=== PATIENT | male | born 1935 | race Caucasian/White ===

== ENCOUNTER 2018-12-01 15:52 | Outpatient (CLI) | payer MEDICARE, OTHER ==
--- NOTE | 2018-12-01 16:03 | RAD ---
EXAM: Chest PA and lateral: HISTORY: Fever. Rib fracture. COMPARISON: 06/22/2018 FINDINGS: Heart: Normal size Aorta: Atherosclerosis Pulmonary vessels: Normal Costophrenic angles: Right costophrenic angle is clear. Blunting of the left costophrenic angle likel y due to chronic change. Lungs: No consolidation or masses.. Chronic changes in the left lung base. Pneumothorax: No pneumothorax Osseous structures: No osseous abnormalities IMPRESSION: No acute cardiopulmonary process.
== END 2018-12-01 15:53 | disposition home or self-care (01) ==
LOC: RAD-FRANK 15:52
PROVIDERS: ATTEND Nurse Practitioner Family
DX: R50.9 Fever, unspecified (principal); S22.39XA Fracture of one rib, unspecified side, initial encounter for closed fracture; R53.83 Other fatigue
CPT/HCPCS: 71046

== ENCOUNTER 2018-12-03 10:03 | Inpatient (IN) | payer MEDICARE ==
[2018-12-03] MEDS ORDERED: Ondansetron PF 4 MG/2 ML Vial ONE ×2 (10:19→10:39)
[2018-12-03] MEDS ORDERED: Acetaminophen 500 MG TAB ONE (10:20)
[2018-12-03] MEDS ORDERED: Acetaminophen 325 MG TAB ONE (10:41)
--- NOTE | 2018-12-03 10:52 | RAD ---
AP CHEST: Date: 12/03/18 HISTORY: Fever. FINDINGS: No infiltrate seen. Heart size upper normal. Vasculature within normal range. No effusion. IMPRESSION: No acute process. POS: OFF
[2018-12-03 10:55] LABS: ALT (SGPT) 29 U/L (8-55); AST (SGOT) 39 U/L (5-34); Albumin 3.6 g/dL (3.4-4.8); Alkaline Phosphatase 82 U/L (40-150); Anion Gap 13 mmol/L (10-20); BUN (Urea Nitrogen) 17 mg/dL (8.4-25.7); Bilirubin, Total 1.2 mg/dL (0.2-1.2); Calc. Creatinine Clearance 0 mL/min (70-130); Calcium 9.7 mg/dL (7.8-10.44); Carbon Dioxide 25 mmol/L (23-31); Chloride 107 mmol/L (98-107); Estimated GFR-MDRD 77; Globulin 2.6 g/dL (2.4-3.5); Glucose 115 mg/dL (83-110); Protein, Total 6.2 g/dL (5.8-8.1); Sodium 141 mmol/L (136-145)
[2018-12-03 10:58] LABS: Mean Corpuscular HGB CONC 33.1 g/dL (32.0-36.0); Mean Corpuscular Hemoglobin 31.4 pg (27.0-31.0); Mean Corpuscular Volume 94.8 fL (78.0-98.0); Mean Platelet Volume 8.2 fL (7.4-10.4); Platelet Count 97 thou/uL (130-400); Platelet Morphology Comment Appears Decreased; RBC Distribution Width 13.1 % (11.5-14.5); Red Blood Cell (RBC) Count 4.46 mill/uL (4.70-6.10); White Blood Cell (WBC) Count 0.6 thou/uL (4.8-10.8)
[2018-12-03 10:59] LABS: MDiff Complete? YES
[2018-12-03 12:01] LABS: Hemoglobin 12.6 g/dL (14.0-18.0); Mean Corpuscular HGB CONC 32.4 g/dL (32.0-36.0); Mean Corpuscular Hemoglobin 31.6 pg (27.0-31.0); Mean Corpuscular Volume 97.6 fL (78.0-98.0); RBC Distribution Width 12.9 % (11.5-14.5); Red Blood Cell (RBC) Count 3.98 mill/uL (4.70-6.10); White Blood Cell (WBC) Count 1.8 thou/uL (4.8-10.8)
[2018-12-03 12:08] LABS: #Lymphocytes 0.3 thou/uL (1.20-3.40); #Neutrophils 1.5 thou/uL (1.40-6.50); %Eosinophils 1.9 % (0.0-10.0); %Lymphocytes 14.2 % (21.0-51.0); %Monocytes 0.9 % (0.0-10.0); Mean Platelet Volume 7.5 fL (7.4-10.4); Platelet Count 70 thou/uL (130-400); Platelet Morphology Comment Appears Decreased
[2018-12-03 12:23] LABS: Bilirubin Negative (Negative); Blood, Urine Large (Negative); Clarity CLOUDY (Clear); Glucose, Urine (Dipstick) Negative (Negative); Leukocyte Small (Negative); Nitrite Positive (Negative); Protein, Urine (Dipstick) Trace mg/dL (Neg-Trace); Specific Gravity, Urine 1.009 (1.002-1.036); Urobilinogen 0.2 mg/dL (0.2-1.0)
[2018-12-03 12:27] LABS: Bacteria/HPF None Seen HPF (None Seen); Hyaline Casts/LPF 0-3 HYALINE CAST LPF (0-3 Hyaline); Pathc Cast-AUWi Flag 0.13 (0-2.49); RBC/HPF GREATER THAN 50-TNTC HPF (0-3); Squamous Epithelial 0-3 HPF (0-3); WBC/HPF 21-50 HPF (0-3)
[2018-12-03] MEDS ORDERED: Piperacillin/Tazobactam 4.5 GM VIAL ONE (12:44)
[2018-12-03] MEDS ORDERED: cefTRIAXone\\ROCEPHIN 2 GM VIAL ONE (12:47)
[2018-12-03] MEDS ORDERED: Ibuprofen 200 MG TAB ONE (13:51)
[2018-12-03] MEDS ORDERED: Ondansetron PF 4 MG/2 ML Vial IVP PRN (15:14)
[2018-12-03] MEDS ORDERED: Ondansetron ODT 4 MG TAB PO PRN (15:14)
[2018-12-03] MEDS ORDERED: Acetaminophen 325 MG TAB PO PRN (15:14)
--- NOTE | 2018-12-03 15:54 | RAD ---
Right hip: 2 views HISTORY: Hip pain. Sepsis. Right hip prosthesis appears adequately positioned. No evidence of loosening. No fracture or acute os seous abnormality. IMPRESSION: No acute finding
--- NOTE | 2018-12-03 16:58 | CT ---
CT ABDOMEN AND PELVIS WITHOUT IV CONTRAST: 12/03/18 Multiple axial tomograms obtained through the abdomen and pelvis without IV enhancement. INDICATIONS: UTI. Sepsis. FINDINGS: Images through the lung bases show mild left basilar atelectasis or infiltrate. The liver, spleen and pancreas appear unremarkable. Adrenal glands normal. The kidneys showed no evidence of hydronephrosis. There is perinephric standin g bilaterally which could represent inflammatory change. No mass or cystic lesion identified although the exam is limited without contrast. Ureters appear normal. Urinary bladder is mildly distended but is unremarkable. Prostate shows calcif ication without significant enlargement. Small bowel loops appear normal. Diverticulosis of the left colon and sigmoid. Aorta normal caliber. No evidence of adenopathy. The gallbladder is nondistended; however, there is evidence of increased density within the gallbladd er lumen. This may represent gallstones which are not apparent by CT. Consider gallbladder ultrasound exam as indicated. Degenerative spine changes are prominent. IMPRESSION: 1. Question abnormal density within the gallbladder lumen. Gallstones cannot be excluded. 2. Diverticulosis without CT evidence of diverticulitis. 3. Bilateral perinephric stranding which is nonspecific. POS: [facility]
[2018-12-03] MEDS ORDERED: Norepinephrine 8 MG/0.9% NS 250 ML ONE (18:11)
--- NOTE | 2018-12-03 18:40 | RAD ---
PORTABLE CHEST ONE VIEW: 12/03/18 at 6:05 p.m. HISTORY: Line placement. FINDINGS/IMPRESSION: Comparison is made with earlier exam of 10:36 a.m. from the same date. There has been interval placement of a left internal jugular central line with tip in the projection of the right brachiocephalic vein. No pneumothorax is seen. POS: [facility]
[2018-12-03] MEDS: Piperacillin/Tazobactam 3.375 GM in Sodium Chloride 0.9% 100 ML IVPB SCH (18:42)
[2018-12-03] MEDS ORDERED: Norepinephrine 8 MG/250 ML BAG IVPB PRN (20:21)
[2018-12-03] MEDS: Famotidine/PF 20 mg/2ml Vial SLOW IVP SCH (20:55)
[2018-12-03] MEDS ORDERED: Lactated Ringer's 500 ML IVPB PRN (21:00)
--- NOTE | 2018-12-03 22:32 | HP ---
CHIEF COMPLAINT: Vomiting. HISTORY OF PRESENT ILLNESS: This patient is an 83-year-old male with a past medical history notable for prostate cancer requiring external beam radiation therapy, but no surgery or chemotherapy. The patient also has notable history for having hip surgery in July at [facility]. The patient reports he was feeling quite well. Two days ago on the , he experienced some low-grade fever. Saw his PCP, at which time he had lab work performed. At that time, he had a CBC of 6.5, hemoglobin of 13, platelets of 168. He had 36% bands. His chemistries were normal and his urinalysis was positive for nitrites, large blood, small leukocyte esterase, 7-10 red cells, 21-50 white cells, and 4+ bacteria. The patient had not heard back on those results, but felt quite well yesterday, had no generalized symptoms, although he did report that he developed some dysuria and hematuria. The patient awoke today feeling quite well, although still having some hematuria and dysuria. Then, he had the fairly abrupt onset of severe rigors and generally felt poorly. He took a couple of Aleve, but subsequently had some vomiting. He also reports having pain in his left shoulder, right hip, and low back area, although he reports all of these are chronic and none of them are new associated with this current illness. The patient decided to come to this facility because Dr. Sanford is his urologist and he knew he would be able to come here. Up until today, the patient has been eating and drinking well, has had basically normal bowel and bladder habits. No new musculoskeletal symptoms other than those that were chronic and mentioned above. REVIEW OF SYSTEMS: All other systems reviewed. All pertinent positives and negatives noted in the history of present illness. PAST MEDICAL HISTORY: Notable for the prostate cancer, which was treated with external beam radiation only, hyperlipidemia. 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 PAST SURGICAL HISTORY: He has had a herniorrhaphy and right hip surgery at [facility] in July of 2018. FAMILY HISTORY: Mother had CVAs. He is unaware of any medical problems with his father. SOCIAL HISTORY: No alcohol, tobacco, or drugs. He is . He is full code. His would be his surrogate decision maker should that be necessary. MEDICATIONS: Crestor 10 mg one p.o. at bedtime. ALLERGIES: NONE. PHYSICAL EXAMINATION: VITAL SIGNS: On initial presentation, temperature was 102.4, O2 saturation 91% on room air. First BP was 118/64. Most recent set of vital signs, BP is 81/51, pulse 78, respirations 22, O2 saturation 94% on 3 L nasal cannula. GENERAL APPEARANCE: The patient appears ill. He is awake and conversant, but appears uncomfortable. HEENT: PERRL. No OP lesions. TMs are normal. NECK: Supple and symmetric. HEART: Normal with a faint 1 to 2/6 murmur right upper sternal border. LUNGS: Clear to auscultation bilaterally with good chest wall expansion and air exchange. ABDOMEN: Soft, nontender, and nondistended. He does have some fullness in the pelvis in the suprapubic area, although I cannot distinctly say it is a bladder fullness. EXTREMITIES: He has no cyanosis, clubbing, or edema. He does have tenderness to palpation fairly specifically in the right hip joint area and some slight tenderness in the left shoulder area. PSYCH: The patient has normal affect and behavior. LABORATORY DATA: Here, initial white count was 0.6, hemoglobin 14.0, platelets 97. Repeat shows white count of 1.8, hemoglobin of 12.6, platelets of 70. Chemistries; sodium 141, potassium 4.0, chloride 107, CO2 of 25, BUN 17, creatinine 0.94, glucose 115, lactic acid 1.4, calcium 9.7, AST 39, ALT 29, albumin 3.6. Urinalysis; large blood, positive nitrites, small leukocyte esterase, greater than 50 red cells, 21 to 50 white cells, no bacteria seen. Of note, urine culture from the is growing 25,000 to 50,000 colonies of gram-negative zay. Chest x-ray from today is negative. Flu screen negative. IMPRESSION AND PLAN: 1. The patient appears to have sepsis secondary to a fever, low white count, now hypotension consistent with septic shock and evidence of potential urinary tract infection and the patient with a history of prostate cancer. Discussed the case with Dr. Collier, Pulmonary Critical Care and Dr. Sanford of Urology. We will get CT scan of the abdomen and pelvis. Also going to get some plain films of the right hip. Continue with the vancomycin and Zosyn and admit the patient to the IM. He has received 2 L of fluid in the emergency department, will be given a 3rd now. The patient has already received vancomycin, Zosyn, and Rocephin. I have asked the nurse to get a bladder scan if she can do that quickly, otherwise CT will be able to show us the results. 2. Pancytopenia. The patient had a dramatic drop in his white count and platelets over a 2-day timeframe. The etiology that is unclear unless it is either severe viral illness which is less likely versus simply severe sepsis causing some suppression which is more likely. 3. Several areas of musculoskeletal pain, all appear to be chronic. We will get the x-ray of the right hip. At this point, I do not feel the need to pursue the other issues unless they continue to be problematic. 4. Shock secondary to sepsis. Continue fluid resuscitation. 5. History of cerebrovascular accident, stable. 6. History of hyperlipidemia. We will resume statin when he is stable. Job ID: [id number]
--- NOTE | 2018-12-03 23:36 | CON ---
DATE OF CONSULTATION: 12/03/2018 SERVICE: Pulmonary Medicine. REASON FOR CONSULTATION: Septic shock. HISTORY OF PRESENT ILLNESS: The patient is a very pleasant 83-year-old white male with past medical history significant for prostate cancer. He underwent radiation therapy to it. He has had episodes of stricture requiring some dilation. He was in his usual state of health when he started having increasing lethargy, fatigue, nausea, and vomiting. He was seen by his primary care physician 2 days ago. Urine culture was obtained. He was called yesterday about the urine culture, but missed the phone call. They told him he was going to try again on Wednesday. Overnight, he had increasing fatigue and lethargy and presented to the emergency department where he was discovered to have hypotension. He was given 3 L of fluid and vancomycin and Zosyn to fix the urinary tract infection. After 3 L of fluid, his blood pressure firmed up. That being said, 2 hours later, he landed in the IMCU, and our initial blood pressures were extraordinarily low. As such, we are in the process of stabilizing him further. PAST MEDICAL HISTORY: 1. Prostate cancers, status post radiation only. 2. Dyslipidemia. PAST SURGICAL HISTORY: 1. Dilation of urethra. 2. Right hip surgery. 3. Umbilical hernia repair. SOCIAL HISTORY: Negative for alcohol, tobacco, or illicit drug use. He has no exposure to chemicals, dust, asbestos, or tuberculosis. FAMILY HISTORY: Noncontributory. ALLERGIES: NO KNOWN DRUG ALLERGIES. MEDICATIONS: List of his inpatient medications was reviewed and updated. REVIEW OF SYSTEMS: General, head, ears, eyes, nose, throat, cardiovascular, respiratory, GI, , musculoskeletal, neurologic, and skin is negative as mentioned in the HPI. PHYSICAL EXAMINATION: VITAL SIGNS: Afebrile, pulse 70, blood pressure 74/52, respirations 14, saturation 99% on 2 L nasal cannula. GENERAL: The patient is awake and alert. He has got a little toxic look about him. HEENT: Normocephalic and atraumatic. Sclerae white. Conjunctivae pink. Oral mucosa is moist without lesions. LUNGS: Decent air entry without any prolonged expiratory phase or wheezing present. HEART: Normal rate. Regular. ABDOMEN: Soft, nontender, and nondistended. Bowel sounds are positive. MUSCULOSKELETAL: No cyanosis or clubbing. There is no pitting edema. SKIN: Tenting is present, which is mild. GENITOURINARY: Quesada catheter is now in place after placement of coude. NEUROLOGIC: Nonfocal. LABORATORY DATA: WBC 1.8 and gently up-trending. Neutrophil count is 83%. Hemoglobin 12.6 (baseline 14). Basic metabolic profile, lactate and liver function studies are unremarkable. White blood cells are 21-50. There are large nitrites present. Leukocyte esterase is also present. Influenza A and B are unremarkable. Recent urine culture is growing gram-negative rods from [address] of the abdomen and pelvis demonstrates abnormal gallbladder lesion. Diverticulosis without evidence of diverticulitis is noted. Bilateral perinephric stranding is present. 2. Rather his hip x-ray demonstrates no acute abnormality. 3. Chest x-ray demonstrates no acute cardiopulmonary abnormality. ASSESSMENT: 1. Septic shock. 2. Urinary tract infection secondary to gram-negative zay. 3. Pyelonephritis, possible. 4. History of prostate cancer, status post radiation therapy only. DISCUSSION AND PLAN: I will give the patient another liter of fluid. If his blood pressures remain flat, we will need to move him to the ICU, place a central line , initiate the patient on a pressor. I will go ahead and initiate stress doses of steroids for the time being. I agree with our antibiotic selection. Most likely, we are dealing with this. The fall out from a massive release of lipopolysaccharide associated with appropriate antibiotic coverage. He will definitely remain in the IMCU, or ICU until his blood pressure is stabilized. Pulmonary/Critical Care will continue to follow along. Critical care time: 30 minutes, unbundled from procedure. Job ID: [id number] [facility]
[2018-12-04] MEDS: Piperacillin/Tazobactam 3.375 GM in Sodium Chloride 0.9% 100 ML IVPB SCH ×5 (00:06→23:05)
--- NOTE | 2018-12-04 01:19 | CON ---
DATE OF CONSULTATION: 12/03/2018 HISTORY OF PRESENT ILLNESS: This is an 83-year-old white male who was admitted today with fever, chills, low blood pressure, very low white count, and urinalysis with white cells and red cells in it. He stated that he was feeling okay until just a couple of days ago. [facility] because he was having some difficulty with urination and burning with urination. He was seen there and I do not believe he was started on any antibiotics. It got worse yesterday and today he started throwing up and having a lot of muscle aches and myalgias as well as fever and chills, voiding just small amounts and noticed some blood in the urine. He was seen in the ER here, had a very low white count. His creatinine was normal. Urinalysis as mentioned. Platelet count was somewhat low also. Cultures of blood and urine were done. He was started on Rocephin, Zosyn, and vancomycin in the emergency center and given some IV fluids. He was sent up to the floor, had problems with low blood pressure on the floor, so he has been transferred here to the ICU. He had an ultrasound of the bladder done that showed about 600 mL and the coude catheter was passed, there was a little bit difficulty in passing this, but they were able to get it in and the urine is draining fine now. He does have a distant history of urethral stricture in 2014. He required a visual internal urethrotomy because of this. His bladder at that time showed some radiation changes as he has had a history of prostate cancer and was radiated for that. I have to review my office notes, but as far as I know he has been doing fine in that regard. A noncontrast CAT scan was done. He does not have hydronephrosis, did have some distention of the bladder, some prostatic calcifications. No stones in either kidney. Nothing to suggest an abscess. He did have some bilateral perinephric stranding, which although could represent pyelonephritis and also can be somewhat nonspecific. PHYSICAL EXAMINATION: He does not really have any significant flank tenderness. His abdomen is soft. There are not any significant rebound, guarding, or abdominal tenderness. The bladder is not distended. He is circumcised. Catheter is draining. Testicles descended. There is nothing to suggest epididymitis. I did not do a rectal exam today. There was not anything on his CAT scan to suggest a prostatic abscess or perirectal abscess and with having the radiation, which seem unlikely, he began getting prostatitis. PLAN: At this time will be to keep him on antibiotics, keep the catheter in, keep him supported here with fluids and pressors as needed in the ICU. There is nothing that appears to be drained apart from having this somewhat distended bladder and has had a catheter in now for that and there is nothing that would look like he would need a ureteral stent. Nothing that looks like he has anything drained in terms of a perinephric or renal abscess. We will follow along with you. Keep him on vancomycin and Zosyn. We will see what his final culture shows. Job ID: [id number]
[2018-12-04 05:09] LABS: ALT (SGPT) 38 U/L (8-55); AST (SGOT) 59 U/L (5-34); Albumin 2.9 g/dL (3.4-4.8); Alkaline Phosphatase 45 U/L (40-150); Anion Gap 11 mmol/L (10-20); BUN (Urea Nitrogen) 23 mg/dL (8.4-25.7); Bilirubin, Total 1.8 mg/dL (0.2-1.2); Calc. Creatinine Clearance 49 mL/min (70-130); Calcium 8.1 mg/dL (7.8-10.44); Carbon Dioxide 23 mmol/L (23-31); Chloride 111 mmol/L (98-107); Estimated GFR-MDRD 59; Globulin 2.2 g/dL (2.4-3.5); Glucose 145 mg/dL (83-110); Potassium 3.5 mmol/L (3.5-5.1); Protein, Total 5.1 g/dL (5.8-8.1); Sodium 141 mmol/L (136-145)
[2018-12-04] MEDS: Famotidine/PF 20 mg/2ml Vial SLOW IVP SCH ×2 (09:24→19:59)
--- NOTE | 2018-12-04 10:53 | PRG ---
DATE OF SERVICE: 12/04/2018 SERVICE: Pulmonary Medicine. INTERVAL HISTORY: The patient is doing really well from respiratory standpoint. He had a little bit of coughing yesterday. He brought up some white phlegm. Other than that, he had absolutely no complaints. He actually feels much stronger today. Denies any current fevers or chills. No overnight events, nausea, vomiting, or diarrhea. He remains on 9 mcg of Levophed. Whenever this is interrupted, he does have significant drop in blood pressure. PHYSICAL EXAMINATION: VITAL SIGNS: Afebrile, pulse 98, blood pressure 122/71, respirations 19, and saturation 97% on 2 L nasal cannula. GENERAL: The patient is awake and alert, in no apparent distress. LUNGS: Excellent air entry. I do not appreciate any crackling. No prolonged expiratory phase or wheezing is appreciated. HEART: Normal rate. Regular. ABDOMEN: Soft, nontender, and nondistended. Bowel sounds are positive. MUSCULOSKELETAL: No cyanosis or clubbing. There is no pitting in the bilateral lower extremities. NEUROLOGIC: Grossly nonfocal. LABORATORY DATA: Sodium 141, basic metabolic profile is otherwise unremarkable. Total bilirubin 1.8. Cultures are growing gram-negative rods in both the urine and in 1 out of 2 blood cultures. Influenza A and B are negative. IMAGING: Chest x-ray demonstrates interval placement of a right IJ central venous catheter. There is no obvious infiltrate noted. ASSESSMENT: 1. Septic shock, resolving. 2. Urinary tract infection secondary to gram-negative zay. 3. Bacteremia secondary to gram-negative zay. 4. History of prostate cancer. DISCUSSION AND PLAN: The patient is doing absolutely fantastic from a septic shock standpoint. We will wean pressors away as tolerated. He got 5 L in fluid resuscitation. As such, we can expect that he may develop respiratory failure. If he starts having increasing CVP, and increasing shortness of breath, a dose of Lasix may be indicated, particularly if he is not diuresing well enough. Pulmonary/Critical Care will continue to follow along and he will certainly need to remain in the ICU until he is off pressors. Job ID: [id number]
--- NOTE | 2018-12-04 11:45 | PDOC.PN ---
- Subjective Encounter Start Date: 12/04/18 Encounter Start Time: 11:43 Patient seen and examined, at bedside, states he feels much better, no issues overnight, all questions answered. - Objective Resuscitation Status - Order Detail: 12/03/18 15:14 Resuscitation Status Routine Resuscitation Status: FULL: Full Resuscitation Vital Signs & Weight: Vital Signs (12 hours) Temp Pulse Ox 12/04/18 08:20 99 12/04/18 08:00 97.7 F 12/04/18 07:46 98 12/04/18 04:00 98.0 F 12/04/18 00:00 97.8 F Weight Weight 157 lb 13.616 oz Most Recent Monitor Data Heart Rate from ECG 64 NIBP 118/70 NIBP BP-Mean 86 Respiration from ECG 21 SpO2 99 I&O: 12/03/18 12/04/18 12/05/18 06:59 06:59 06:59 Intake Total 387 Output Total 1281 230 Balance -894 -230 Result Diagrams: 12/03/18 11:40 12/04/18 04:00 Phys Exam - Physical Examination Constitutional: NAD HEENT: PERRLA, moist MMs, sclera anicteric Neck: no nodes, no JVD, supple Respiratory: no wheezing, no rales, no rhonchi Cardiovascular: RRR, no significant murmur, no rub Gastrointestinal: soft, non-tender, no distention, positive bowel sounds Musculoskeletal: no edema, pulses present Dx/Plan (1) Complicated urinary tract infection Code(s): N39.0 - URINARY TRACT INFECTION, SITE NOT SPECIFIED Status: Acute (2) Sepsis Code(s): A41.9 - SEPSIS, UNSPECIFIED ORGANISM Status: Acute (3) Hypotension Status: Acute (4) BPH (benign prostatic hyperplasia) Code(s): N40.0 - BENIGN PROSTATIC HYPERPLASIA WITHOUT LOWER URINRY TRACT SYMP Status: Acute - Plan * cont current tx plan * cont abx * pt improving * GNR in urine, pending full C&S * BP stable * PT evaluation * can likely transfer to floor in AM * DC plans in 24-48hrs if patient stable and urine C&S available * case and plan d/w patient and at length, they understand and agree with this plan
[2018-12-04] MEDS ORDERED: Vancomycin HCl 1 GM in Premix Bag 1 BAG IVPB SCH (13:00)
--- NOTE | 2018-12-04 17:59 | OP ---
DATE OF PROCEDURE: 12/03/2018 SERVICE: Pulmonary Medicine. PROCEDURE PERFORMED: Left-sided triple-lumen internal jugular central venous catheter placement under ultrasound guidance. CONSENT: Risks and benefits of this procedure were implied secondary to emergent condition. STAFF PHYSICIAN: Rome oCllier MD MEDICATIONS USED: Lidocaine, 1% without epinephrine, total quantity 5 mL. PREOPERATIVE DIAGNOSIS: Septic shock. POSTOPERATIVE DIAGNOSIS: Septic shock. DESCRIPTION OF PROCEDURE: Vital sign monitoring was accomplished by noninvasive hemodynamic monitoring, pulse oximetry, and telemetry. A time-out was performed , and the patient was positively identified by name and date of . The procedure site was marked. The patient was placed in supine position, and the left neck was prepped and draped in sterile fashion. The course of the IJ vein was mapped with ultrasound. The overlying skin was anesthetized with 1% lidocaine without epinephrine. The cannulation needle was placed in the internal jugular vein under direct ultrasound guidance with return of dark red, nonpulsatile blood on the first attempt. A J-shaped guidewire was threaded through the cannulation needle without difficulty. A small incision was made. The dilator and triple-lumen central venous catheter were sterilely threaded over the guidewire. The catheter was sutured to the skin at 18 cm with 3-0 silk sutures x2. All 3 ports withdrew and flushed without difficulty. A sterile dressing was applied, and the procedure was terminated. Postprocedure x-ray demonstrated good location for the tip of the catheter. ESTIMATED BLOOD LOSS: 5 mL. COMPLICATIONS: None. Job ID: [id number] [facility]
[2018-12-05] MEDS ORDERED: Melatonin 3 MG TAB PO PRN (00:27)
[2018-12-05] MEDS: Piperacillin/Tazobactam 3.375 GM in Sodium Chloride 0.9% 100 ML IVPB SCH ×4 (06:49→23:17)
[2018-12-05 06:54] LABS: Hemoglobin 11.4 g/dL (14.0-18.0); Mean Corpuscular Hemoglobin 31.6 pg (27.0-31.0); Mean Corpuscular Volume 95.8 fL (78.0-98.0); Platelet Count 45 thou/uL (130-400); Red Blood Cell (RBC) Count 3.61 mill/uL (4.70-6.10); White Blood Cell (WBC) Count 13.2 thou/uL (4.8-10.8)
[2018-12-05 07:09] LABS: Anion Gap 9 mmol/L (10-20); BUN (Urea Nitrogen) 24 mg/dL (8.4-25.7); Calc. Creatinine Clearance 56 mL/min (70-130); Calcium 8.5 mg/dL (7.8-10.44); Carbon Dioxide 24 mmol/L (23-31); Chloride 111 mmol/L (98-107); Estimated GFR-MDRD 69; Glucose 85 mg/dL (83-110); Potassium 3.3 mmol/L (3.5-5.1); Sodium 141 mmol/L (136-145)
[2018-12-05 07:14] LABS: Phosphorus 1.8 mg/dL (2.3-4.7)
[2018-12-05 07:58] LABS: Band 54 % (5-11); Burr Cells SLIGHT = 2-5 cells (100X) (0-1/hpf); Lymphocytes 3 % (21-51); MDiff Complete? YES; Metamyelocyte 1 % (0-0); Monocytes 2 % (0-10); Neutrophil 39 % (42-75); Platelet Morphology Comment Appears Decreased; Reactive Lymphocytes 1 % (0-10); Toxic Granulation SLIGHT
[2018-12-05] MEDS: Famotidine/PF 20 mg/2ml Vial SLOW IVP SCH (08:37)
--- NOTE | 2018-12-05 12:39 | PDOC.PN ---
- Subjective Encounter Start Date: 12/05/18 Encounter Start Time: 12:37 Patient seen and examined, states he feels well no new issues, no family at bedside, all questions answered. - Objective Resuscitation Status - Order Detail: 12/03/18 15:14 Resuscitation Status Routine Resuscitation Status: FULL: Full Resuscitation Vital Signs & Weight: Vital Signs (12 hours) Temp Pulse Ox 12/05/18 07:51 100 12/05/18 07:00 98.7 F 12/05/18 04:00 98.8 F Weight Weight 157 lb 4.8 oz Most Recent Monitor Data Heart Rate from ECG 62 NIBP 122/73 NIBP BP-Mean 89 Respiration from ECG 20 SpO2 96 I&O: 12/04/18 12/05/18 12/06/18 06:59 06:59 06:59 Intake Total 387 1414 240 Output Total 1281 1353 280 Balance -894 61 -40 Result Diagrams: 12/05/18 06:27 12/05/18 06:27 Phys Exam - Physical Examination Constitutional: NAD HEENT: PERRLA, moist MMs, sclera anicteric Neck: no nodes, no JVD, supple Respiratory: no wheezing, no rales, no rhonchi Cardiovascular: RRR, no significant murmur, no rub Gastrointestinal: soft, non-tender, no distention, positive bowel sounds Musculoskeletal: pulses present, edema present (trace) Dx/Plan (1) Complicated urinary tract infection Code(s): N39.0 - URINARY TRACT INFECTION, SITE NOT SPECIFIED Status: Acute (2) Sepsis Code(s): A41.9 - SEPSIS, UNSPECIFIED ORGANISM Status: Acute (3) Hypotension Status: Acute (4) BPH (benign prostatic hyperplasia) Code(s): N40.0 - BENIGN PROSTATIC HYPERPLASIA WITHOUT LOWER URINRY TRACT SYMP Status: Acute - Plan * transfer to medical floor * cont abx for now * if afebrile in the next 24 hours and WBC acceptable will DC in AM * case and plan d/w patient at length, he understood and agreed with this plan.
[2018-12-05] MEDS ORDERED: Potassium Phosphate 15 MMOL in Sodium Chloride 0.9% 250 ML 250 ML IVPB SCH (15:30)
[2018-12-05] MEDS ORDERED: Potassium Chloride 20 MEQ TAB PO SCH (15:30)
--- NOTE | 2018-12-05 15:54 | PRG ---
DATE OF SERVICE: 12/05/2018 SERVICE: Pulmonary Medicine. INTERVAL HISTORY: The patient is doing outstanding from respiratory standpoint. Breathing comfortably. No complaints of chest pain, fevers, chills, nausea or vomiting. Otherwise, there has been no interval change to his condition. PHYSICAL EXAMINATION: VITAL SIGNS: Afebrile, pulse 61, blood pressure 136/68, respirations 22, and saturation 100% on room air. GENERAL: The patient is awake and alert, in no apparent distress. LUNGS: Excellent air entry. Dependent crackles are minimal. No prolonged expiratory phase or wheezing is appreciated. HEART: Normal rate and regular. ABDOMEN: Soft, nontender, and nondistended. Bowel sounds are positive. MUSCULOSKELETAL: No cyanosis or clubbing. There is no pitting in the bilateral lower extremities. NEUROLOGIC: Grossly nonfocal. LABORATORY DATA: WBC 13.2, hemoglobin 11.4, and platelets 45,000 and downtrending. Neutrophil count is 39% on top of 54% bands. Basic metabolic profile is essentially unremarkable except for potassium of 3.3. Phosphorus 1.8. Urinalysis is consistent with urinary tract infection. Blood culture is growing Citrobacter species in one of the two, and the urine culture is currently growing two gram-negative rods. Influenza A and B are negative. ASSESSMENT: 1. Septic shock, resolved. 2. Urinary tract infection secondary to gram-negative zay. 3. Bacteremia secondary to Citrobacter. 4. History of prostate cancer. DISCUSSION AND PLAN: The patient is doing absolutely wonderful. We will replace his potassium and phosphorus. He is off the Levophed. As such, he can be transitioned to the floor. At this point, the patient has no further requirements for Pulmonary or Critical Care opinion, so when he leaves the ICU, I will sign off. Please call with additional questions or concerns through time. Job ID: [id number]
[2018-12-05 16:47] VITALS: BMI 25.4
[2018-12-05] MEDS: Famotidine 20 MG TAB PO SCH (20:31)
[2018-12-06 05:38] LABS: Anion Gap 9 mmol/L (10-20); BUN (Urea Nitrogen) 19 mg/dL (8.4-25.7); Calc. Creatinine Clearance 66 mL/min (70-130); Calcium 8.8 mg/dL (7.8-10.44); Carbon Dioxide 24 mmol/L (23-31); Chloride 114 mmol/L (98-107); Estimated GFR-MDRD 84; Glucose 83 mg/dL (83-110); Potassium 3.7 mmol/L (3.5-5.1); Sodium 143 mmol/L (136-145)
[2018-12-06] MEDS: Piperacillin/Tazobactam 3.375 GM in Sodium Chloride 0.9% 100 ML IVPB SCH (05:48)
[2018-12-06 06:05] LABS: Band 19 % (5-11); Burr Cells SLIGHT = 2-5 cells (100X) (0-1/hpf); Lymphocytes 10 % (21-51); MDiff Complete? YES; Mean Corpuscular HGB CONC 31.2 g/dL (32.0-36.0); Mean Corpuscular Hemoglobin 30.8 pg (27.0-31.0); Mean Corpuscular Volume 98.7 fL (78.0-98.0); Mean Platelet Volume 8.9 fL (7.4-10.4); Monocytes 2 % (0-10); Neutrophil 69 % (42-75); Platelet Count 60 thou/uL (130-400); Platelet Morphology Comment Appears Decreased; RBC Distribution Width 13.2 % (11.5-14.5); Red Blood Cell (RBC) Count 3.57 mill/uL (4.70-6.10); Toxic Granulation SLIGHT; White Blood Cell (WBC) Count 17.3 thou/uL (4.8-10.8)
[2018-12-06] MEDS: Famotidine 20 MG TAB PO SCH ×2 (07:56→19:13)
--- NOTE | 2018-12-06 12:37 | PDOC.PN ---
- Subjective Encounter Start Date: 12/06/18 Encounter Start Time: 12:35 Patient seen and examined, no new issues or complaints, all questions answered. No family at bedside. - Objective Resuscitation Status - Order Detail: 12/03/18 15:14 Resuscitation Status Routine Resuscitation Status: FULL: Full Resuscitation Vital Signs & Weight: Vital Signs (12 hours) Temp Pulse Resp BP Pulse Ox 12/06/18 11:04 98.4 F 60 19 157/86 H 94 L 12/06/18 07:45 98.4 F 71 20 149/81 H 95 Weight Admit Weight 157 lb Weight 157 lb 4.8 oz Most Recent Monitor Data Heart Rate from ECG 61 NIBP 136/68 NIBP BP-Mean 90 Respiration from ECG 22 SpO2 100 I&O: 12/05/18 12/06/18 12/07/18 06:59 06:59 06:59 Intake Total 1414 1240 Output Total 1353 1940 Balance 61 -700 Result Diagrams: 12/06/18 05:04 12/06/18 05:04 Phys Exam - Physical Examination Constitutional: NAD HEENT: PERRLA, moist MMs, sclera anicteric Neck: no nodes, no JVD, supple Respiratory: no wheezing, no rales, no rhonchi Cardiovascular: RRR, no significant murmur, no rub Gastrointestinal: soft, non-tender, no distention, positive bowel sounds Musculoskeletal: no edema, pulses present Dx/Plan (1) Complicated urinary tract infection Code(s): N39.0 - URINARY TRACT INFECTION, SITE NOT SPECIFIED Status: Acute (2) Sepsis Code(s): A41.9 - SEPSIS, UNSPECIFIED ORGANISM Status: Acute (3) Hypotension Status: Acute (4) BPH (benign prostatic hyperplasia) Code(s): N40.0 - BENIGN PROSTATIC HYPERPLASIA WITHOUT LOWER URINRY TRACT SYMP Status: Acute - Plan * DC central line * DC zosyn, change to levaquin * repeat blood cultures to be done today * WBC count continues to rise, will DC once it's going down * remains afebrile * case and plan d/w patient at length, he understood and agreed with this plan.
[2018-12-07 08:20] LABS: Hemoglobin 11.8 g/dL (14.0-18.0); Mean Corpuscular HGB CONC 32.5 g/dL (32.0-36.0); Mean Corpuscular Volume 95.3 fL (78.0-98.0); Mean Platelet Volume 8.3 fL (7.4-10.4); Platelet Count 78 thou/uL (130-400); RBC Distribution Width 13.1 % (11.5-14.5); Red Blood Cell (RBC) Count 3.79 mill/uL (4.70-6.10)
[2018-12-07] MEDS: Famotidine 20 MG TAB PO SCH (08:22)
[2018-12-07 08:27] LABS: Anion Gap 10 mmol/L (10-20); BUN (Urea Nitrogen) 18 mg/dL (8.4-25.7); Calc. Creatinine Clearance 68 mL/min (70-130); Calcium 9.4 mg/dL (7.8-10.44); Carbon Dioxide 26 mmol/L (23-31); Chloride 109 mmol/L (98-107); Estimated GFR-MDRD 86; Glucose 83 mg/dL (83-110); Potassium 3.7 mmol/L (3.5-5.1); Sodium 141 mmol/L (136-145)
[2018-12-07 08:39] VITALS: BP 162/81; TEMP 98.5
[2018-12-07 09:18] LABS: Band 27 % (5-11); Burr Cells SLIGHT = 2-5 cells (100X) (0-1/hpf); Eosinophils 1 % (0-10); Lymphocytes 15 % (21-51); MDiff Complete? YES; Monocytes 8 % (0-10); Neutrophil 48 % (42-75); Platelet Morphology Comment Appears Decreased; Polychromasia SLIGHT = 2-3 cells (100X) (0-2/hpf); Reactive Lymphocytes 1 % (0-10)
--- NOTE | 2018-12-07 14:21 | PDOC.EVN ---
Event Note - Event Note Event Note: DC SUMMARY #[id number]
--- NOTE | 2018-12-07 21:17 | DIS ---
DATE OF ADMISSION: 12/03/2018 DATE OF DISCHARGE: 12/07/2018 ADMITTING DIAGNOSES: Sepsis, urinary tract infection, hypotension, benign prostatic hyperplasia. DISCHARGE DIAGNOSES: Urinary tract infection and sepsis, resolved. Benign prostatic hyperplasia, stable. Hypotension, resolved. HOSPITAL COURSE: This is an 83-year-old male with past medical history of benign prostatic hyperplasia, presenting to the hospital with sepsis and UTI. The patient was admitted to Internal Medicine Team, followed closely by Critical Care as well as Urology. The patient had been started on antibiotics and IV fluids. Condition at point in time of discharge were significantly better. The patient's white count at point in time of admission was 0.6, at time of discharge was 9. The patient's urine culture and blood culture had grown Citrobacter, it was pansensitive. Levofloxacin was chosen as the agent to be taken for 2 weeks. The patient at point in time of discharge was stable. Denied any nausea, vomiting, diarrhea, constipation, chest pain, fevers, chills, or shortness of breath. He was to follow up with PCP and Neurology within 1 to 2 weeks post discharge. at bedside. Case and plan discussed with the patient and at length. They understood and agreed with this plan. DISPOSITION: Home. FOLLOWUP: Follow up with PCP and Urology within 1 week. CONDITION: Stable. PROGNOSIS: Good. DIET: Low-fat, low-calorie, high-fiber diet. ACTIVITY: As tolerated with assistance as needed. Case and plan once again discussed with the patient at length. He understood and agreed with this plan. at bedside, she also agreed Job ID: [id number]
== END 2018-12-07 16:42 | disposition home or self-care (01) | DRG 871 ==
LOC: ERS 10:03 → IMCU/EMU 15:17 → CCU 18:08 → T4-A 12-05 15:20
PROVIDERS: ADMIT Internal Medicine; ATTEND Internal Medicine
PROC: 05H333Z Insertion of Infusion Device into Right Innominate Vein, Percutaneous Approach (ICD-10-PCS; principal; 2018-12-03)
PROC: B54MZZA Ultrasonography of Right Upper Extremity Veins, Guidance (ICD-10-PCS; 2018-12-03)
DX: A41.59 Other Gram-negative sepsis (principal); R65.21 Severe sepsis with septic shock; N39.0 Urinary tract infection, site not specified; D61.818 Other pancytopenia; N40.0 Benign prostatic hyperplasia without lower urinary tract symptoms; E78.5 Hyperlipidemia, unspecified; Z88.8 Allergy status to other drugs, medicaments and biological substances; Z85.46 Personal history of malignant neoplasm of prostate; Z79.899 Other long term (current) drug therapy; Z98.890 Other specified postprocedural states; Z92.3 Personal history of irradiation; Z86.73 Personal history of transient ischemic attack (TIA), and cerebral infarction without residual deficits
CPT/HCPCS: 36415; 71045; 71046; 74176; 80048; 80053; 81003; 81015; 83605; 83735; 84100; 85025; 87040; 87077; 87086; 87149; 87186; 87804; 94760; 96361; 96365; 96367; 96375; 99213; C1751; G0463; J0696; J1956; J2405; J2543; J3370; J3490; J7050; S0028

== ENCOUNTER 2018-12-13 15:10 | Emergency (ER) | payer MEDICARE ==
[2018-12-13 16:10] LABS: #Lymphocytes 1.7 thou/uL (1.20-3.40); #Monocytes 0.4 thou/uL (0.11-0.59); #Neutrophils 1.4 thou/uL (1.40-6.50); %Basophils 1.1 % (0.0-1.0); %Eosinophils 1.4 % (0.0-10.0); %Lymphocytes 48.1 % (21.0-51.0); %Monocytes 11.1 % (0.0-10.0); %Neutrophils 38.4 % (42.0-75.0); Hemoglobin 13.3 g/dL (14.0-18.0); Mean Corpuscular HGB CONC 32.3 g/dL (32.0-36.0); Mean Corpuscular Hemoglobin 31.1 pg (27.0-31.0); Mean Corpuscular Volume 96.1 fL (78.0-98.0); Platelet Count 325 thou/uL (130-400); RBC Distribution Width 13.2 % (11.5-14.5); Red Blood Cell (RBC) Count 4.27 mill/uL (4.70-6.10); White Blood Cell (WBC) Count 3.5 thou/uL (4.8-10.8)
[2018-12-13 16:32] LABS: ALT (SGPT) 24 U/L (8-55); AST (SGOT) 24 U/L (5-34); Albumin 3.7 g/dL (3.4-4.8); Alkaline Phosphatase 117 U/L (40-150); Anion Gap 8 mmol/L (10-20); BUN (Urea Nitrogen) 16 mg/dL (8.4-25.7); Bilirubin, Total 1.1 mg/dL (0.2-1.2); Calc. Creatinine Clearance 0 mL/min (70-130); Calcium 9.7 mg/dL (7.8-10.44); Carbon Dioxide 30 mmol/L (23-31); Chloride 104 mmol/L (98-107); Estimated GFR-MDRD 87; Globulin 3.3 g/dL (2.4-3.5); Glucose 81 mg/dL (83-110); Potassium 4.4 mmol/L (3.5-5.1); Sodium 138 mmol/L (136-145)
== END 2018-12-13 20:15 | disposition home or self-care (01) ==
LOC: ERS 15:10
DX: K62.5 Hemorrhage of anus and rectum (principal)
CPT/HCPCS: 36415; 80053; 82274; 85025; 99283

== ENCOUNTER 2019-01-26 13:27 | Outpatient (CLI) | payer MEDICARE ==
[2019-01-26] MEDS ORDERED: Sodium Chloride 0.9% 15 ML NEB ONE (15:00)
[2019-01-26] MEDS ORDERED: Lidocaine 2% PF 100 mg/5 ml Syringe ONE (15:00)
--- NOTE | 2019-01-26 21:48 | HP ---
HISTORY OF PRESENT ILLNESS: Mr. Dakota Hutchins is a very pleasant 83-year-old gentleman, accompanied by his , who presents to the Wound Center for evaluation of a wound of the right lateral ankle. The patient states that a ramp at the back of a trailer fell causing a laceration to his ankle requiring the placement of 14 sutures. The patient states that 10 days after the sutures were placed, the sutures were discontinued by his nurse practitioner. At this time, arrangements were made for dressing changes by Home Health 2 times per week of triple antibiotic ointment followed by Lokesh. The patient's states that she has been performing the preceding dressing changes on the remaining days of the week at a followup visit with the patient's nurse practitioner. Mr. Hutchins was referred to the Wound Center for further evaluation and treatment. The patient states he is taking clindamycin as per his nurse practitioner. PAST MEDICAL HISTORY: 1. CVA. 2. Prostate carcinoma, status post radiation therapy. 3. Coronary artery disease. PAST SURGICAL HISTORY: 1. Hernia repair. 2. Right hip surgery. MEDICATIONS: 1. Crestor. 2. Centrum Silver. 3. Fish oil. 4. Vitamin D. 5. Clindamycin. 6. Coenzyme Q12. ALLERGIES: NO KNOWN DIAGNOSED ALLERGIES. SOCIAL HISTORY: Social history is negative for tobacco or EtOH use. FAMILY HISTORY: Family history is negative for diabetes mellitus or coronary artery disease. PHYSICAL EXAMINATION: VITAL SIGNS: Temperature 97.9, pulse 85, respirations 20, blood pressure 139/74. GENERAL: An 83-year-old gentleman, lying on stretcher in examination room, in no acute distress. HEENT: Normocephalic, atraumatic. NECK: No nuchal rigidity. CHEST: Clear to auscultation. CV: Regular rate and rhythm. ABDOMEN: Soft. EXTREMITIES: A wound of the right lateral ankle is present, which measures approximately 4.0 x 0.2 cm. Necrotic and nonviable tissue present within the wound margins was debrided with an excisional full-thickness debridement with the use of scissors and a curette. No purulent drainage is associated with the wound. Erythema of the skin surrounding the wound is present. No maceration of the skin of the periwound is noted. A dorsalis pedis pulse and a posterior tibial pulse are both palpable on the right. Edema of the right foot and lower leg is present on exam today. Granulation tissue is visible within the wound margins. ASSESSMENT AND PLAN: 1. Wound of right lateral ankle as described above. Stephenn, followed by Gary and the 3M Coban 2-Layer Compression System will be applied to the right lateral ankle wound today. The patient is to continue clindamycin as previously prescribed. I will see Mr. Hutchins again in 1 week. The patient and his understand and are in agreement with the preceding treatment plan. 2. Cerebrovascular accident. 3. Prostate carcinoma, status post radiation therapy. 4. Coronary artery disease, status post stent placement. Job ID: [id number]
== END 2019-01-26 13:28 | disposition home or self-care (01) ==
LOC: WCC 13:27
PROVIDERS: ATTEND Family Medicine
DX: S91.001D Unspecified open wound, right ankle, subsequent encounter (principal); I63.9 Cerebral infarction, unspecified; C61 Malignant neoplasm of prostate; I25.10 Atherosclerotic heart disease of native coronary artery without angina pectoris; Z95.1 Presence of aortocoronary bypass graft
CPT/HCPCS: 11042; 97139; G0463; 99203; A4218; J2001

== ENCOUNTER 2019-02-02 14:03 | Outpatient (CLI) | payer MEDICARE ==
[~2019-02-02 14:03] MED LIST: Sodium Chloride 0.9% 15 ML NEB ONE
--- NOTE | 2019-02-02 15:06 | PRG ---
DATE OF SERVICE: 02/02/2019 SUBJECTIVE: Mr. Dakota Hutchins is a very pleasant 83-year-old gentleman, accompanied by his , who presents to the Wound Center for evaluation of a wound of the right lateral ankle. Previously, the patient stated that a ramp at the back of a trailer fell causing a laceration to his ankle requiring the placement of 14 sutures. The patient stated that 10 days after the sutures were placed, the sutures were discontinued by his nurse practitioner. At this time, arrangements were made for dressing changes by Home Health 2 times per week of triple antibiotic ointment followed by Lokesh. The patient's stated that she had been performing the dressing changes on the remaining days of the week. Had a followup visit with the patient's nurse practitioner. Mr. Hutchins was referred to the Wound Center for further evaluation and treatment. Prior to being seen in the Wound Center, the patient had been taking clindamycin as per his nurse practitioner. OBJECTIVE: VITAL SIGNS: Temperature 97.6, pulse 63, respirations 18, and blood pressure 141/70. EXTREMITIES: A wound of the right lateral ankle is present, which measures approximately 2.7 x 0.8 cm. Necrotic and nonviable tissue present within the wound margins was debrided with an excisional full-thickness debridement with the use of a curette. No purulent drainage is associated with the wound. No erythema of the skin surrounding the wound is present. No maceration of the skin of the periwound is noted. A dorsalis pedis pulse is easily palpable on the right. No significant edema of the right foot or lower leg is present on exam today. Granulation tissue is visible within the wound margins. ASSESSMENT AND PLAN: 1. Wound of right lateral ankle as described above. Teresa followed by Gary and the 3M Coban 2 Layer Compression System will be applied to the right lateral ankle wound today. The patient will receive a dressing change by Home Health in 1 week. I will see Mr. Hutchins in 2 weeks. 2. Cerebrovascular accident. 3. Prostate carcinoma, status post radiation therapy. 4. Coronary artery disease, status post stent placement. Job ID: [id number]
== END 2019-02-02 14:04 | disposition home or self-care (01) ==
LOC: WCC 14:03
PROVIDERS: ATTEND Family Medicine
DX: S91.001D Unspecified open wound, right ankle, subsequent encounter (principal); I63.9 Cerebral infarction, unspecified; C61 Malignant neoplasm of prostate; I25.10 Atherosclerotic heart disease of native coronary artery without angina pectoris; Z92.3 Personal history of irradiation
CPT/HCPCS: 11042; 80053; 80061; 81003; 82607; 82746; 85025; 87086; 97139; G0103; A4218

== ENCOUNTER 2019-02-16 15:19 | Outpatient (CLI) | payer MEDICARE ==
--- NOTE | 2019-02-16 15:07 | PRG ---
DATE OF SERVICE: 02/16/2019 HISTORY: Mr. Dakota Hutchins is a very pleasant 83-year-old gentleman, accompanied by his , who presents to the Wound Center for evaluation of a wound of the right lateral ankle. The patient previously stated that a wrap at the back of a trailer fell causing a laceration to his ankle requiring the placement of 14 sutures. The patient stated that 10 days after the sutures were placed, the sutures were discontinued by his nurse practitioner. At this time, arrangements were made for dressing changes by Home Health 2 times per week of triple antibiotic ointment followed by Lokesh. The patient's stated that she had been performing the dressing changes on the remaining days of the week. At a followup visit with the patient's nurse practitioner, Mr. Hutchins was referred to the Wound Center for further evaluation and treatment. Prior to being seen in the Wound Center, the patient had been taking clindamycin as per his nurse practitioner. PHYSICAL EXAMINATION: VITAL SIGNS: Temperature 97.7, pulse 78, respirations 18, blood pressure 140/68. EXTREMITIES: The wound of the right lateral ankle has healed completely. A dorsalis pedis pulse is easily palpable on the right. ASSESSMENT AND PLAN: 1. Wound of right lateral ankle as described above. As stated above, the wound has healed completely. The newly healed wound will be dressed with Allevyn. Orders will be transmitted to Home Health for the dressings to be discontinued in 4 days. At this time, all dressing changes will be discontinued. 2. Cerebrovascular accident. 3. Prostate carcinoma, status post radiation therapy. 4. Coronary artery disease, status post stent placement. Job ID: [id number]
== END 2019-02-16 15:20 | disposition home or self-care (01) ==
LOC: WCC 15:19
PROVIDERS: ATTEND Family Medicine
DX: S91.001D Unspecified open wound, right ankle, subsequent encounter (principal); I63.9 Cerebral infarction, unspecified; C61 Malignant neoplasm of prostate; I25.10 Atherosclerotic heart disease of native coronary artery without angina pectoris
CPT/HCPCS: 97602; A4218

== ENCOUNTER 2020-02-19 10:28 | Emergency (ER) | payer MEDICARE ==
--- NOTE | 2020-02-19 11:25 | RAD ---
EXAM: 3 views of the left shoulder HISTORY: Shoulder pain COMPARISON: None FINDINGS: There is no evidence of acute fracture or dislocation. No degenerative changes are present. No soft tissue swelling is seen. The visualized thorax is unremarkable. IMPRESSION: No evidence of acute osseous abnormality.
--- NOTE | 2020-02-19 11:53 | CT ---
CT CERVICAL SPINE NONCONTRAST: DATE: 02/19/2020 HISTORY: cervical trauma: 84-year-old male status post fall. FINDINGS: There are no jumped or perched facets. There is no evidence of acute fracture. The vertebral body hei ghts are maintained. There is no prevertebral soft tissue swelling. There are degenerative disc changes and facet osteoarthrosis. This includes severe right-sided facet DJD at upper and mid levels. There is multilevel high-grade neural foraminal stenosis, including severe. IMPRESSION: 1) Cervical spondylosis. 2) no evidence of acute fracture or acute traumatic subluxation.
--- NOTE | 2020-02-19 12:23 | CT ---
CT BRAIN WITHOUT CONTRAST: Date: 02/19/2020 HISTORY: Head trauma. COMPARISON: CT from 2010. FINDINGS: Old left external capsule infarct. No acute hemorrhage or infarct. No midline shift or mass effect. C alvarium is intact. Paranasal sinuses and mastoids are relatively clear. Left forehead laceration. IMPRESSION: Left forehead laceration. Otherwise no acute intracranial abnormality. POS: [facility]
[2020-02-19] MEDS ORDERED: Adacel (T-DAP) 0.5 ML SYRINGE ONE (12:43)
== END 2020-02-19 13:17 | disposition home or self-care (01) ==
LOC: ERS 10:28
DX: S01.81XA Laceration without foreign body of other part of head, initial encounter (principal); S40.012A Contusion of left shoulder, initial encounter; I10 Essential (primary) hypertension; W22.8XXA Striking against or struck by other objects, initial encounter
CPT/HCPCS: 12013; 70450; 72125; 90471; 90715

== ENCOUNTER 2020-05-03 11:25 | Emergency (ER) | payer MEDICARE ==
[2020-05-03] MEDS ORDERED: Ketorolac Tromethamine 30 MG/ML VIAL ONE (12:36)
[2020-05-03 12:52] LABS: #Lymphocytes 1.5 thou/uL (1.20-3.40); #Neutrophils 9.6 thou/uL (1.40-6.50); %Basophils 0.1 % (0.0-1.0); %Eosinophils 0.2 % (0.0-10.0); %Lymphocytes 12.3 % (21.0-51.0); %Monocytes 8.6 % (0.0-10.0); %Neutrophils 78.9 % (42.0-75.0); Hemoglobin 12.8 g/dL (14.0-18.0); Mean Corpuscular HGB CONC 32.1 g/dL (32.0-36.0); Mean Corpuscular Hemoglobin 32.3 pg (27.0-31.0); Platelet Count 133 thou/uL (130-400); RBC Distribution Width 12.1 % (11.5-14.5); Red Blood Cell (RBC) Count 3.98 mill/uL (4.70-6.10); White Blood Cell (WBC) Count 12.1 thou/uL (4.8-10.8)
[2020-05-03 13:00] LABS: Bacteria/HPF None Seen HPF (None Seen); Bilirubin Negative (Negative); Blood, Urine Negative (Negative); Clarity Clear (Clear); Glucose, Urine (Dipstick) Normal (Negative); Ketone, Urine 20 mg/dL (Negative); Leukocyte 250 Leu/uL (Negative); Nitrite Negative (Negative); Protein, Urine (Dipstick) Negative (Neg-Trace); RBC/HPF 0-3 HPF (0-3); Specific Gravity, Urine 1.013 (1.002-1.036); Squamous Epithelial 0-3 HPF (0-3); Urobilinogen Normal mg/dL (Less than 2); WBC/HPF 21-50 HPF (0-3); pH, Urine 6.5 (5.0-9.0)
--- NOTE | 2020-05-03 13:12 | CT ---
EXAM: CT Lumbar Spine WO Con DATE: 05/03/2020 1:05 PM INDICATION: 84-year-old male with back pain COMPARISON: None. FINDING: There is grade 1 anterolisthesis of L4 and L5. There is very minimal retrolisthesis of L4 a nd L5, L3 and L4 and L2 on L3. There is vacuum disc phenomenon at L1-2, L3-4, L4-5 and L5-S1 likely indicative of some disc instability. There is advanced facet osteoarthritic change at L4-5 and L5-S1. There is mild left osseous neural foraminal narrowing at L3-4. There is a least moderate to severe central canal narrowing at L4-5 due to a disc osteophyte complex with facet facet hypertrophy and ligamentum flavum hypertrophy. There is severe bilateral osseous neural foraminal narrowing. There is at least moderate central canal narrowing at L5-S1 with severe osseous neural foraminal narr owing due to a disc osteophyte complex and facet hypertrophy. Visualized retroperitoneum demonstrates mild scattered vascular calcification of the abdominal aorta. There are scattered colonic diverticula. There is a small 1.8 cm diverticulum off the right posterior lateral aspect of the bladder dome. IMPRESSION: 1. No acute fracture or subluxation demonstrated. 2. Severe spondylosis of the lumbar spine most pronounced at L4-5 and L5-S1.
[2020-05-03 13:13] LABS: ALT (SGPT) 18 U/L (8-55); AST (SGOT) 21 U/L (5-34); Albumin 3.1 g/dL (3.4-4.8); Alkaline Phosphatase 49 U/L (40-110); Anion Gap 14 mmol/L (10-20); BUN (Urea Nitrogen) 15 mg/dL (8.4-25.7); Bilirubin, Total 1.1 mg/dL (0.2-1.2); Calc. Creatinine Clearance 0 mL/min (70-130); Calcium 8.7 mg/dL (7.8-10.44); Carbon Dioxide 18 mmol/L (23-31); Chloride 109 mmol/L (98-107); Estimated GFR-MDRD Greater than 90; Globulin 2.9 g/dL (2.4-3.5); Glucose 117 mg/dL (83-110); Potassium 3.8 mmol/L (3.5-5.1); Sodium 137 mmol/L (136-145)
--- NOTE | 2020-05-03 15:37 | MRI ---
MR the lumbar spine with and without contrast INDICATION: 84-year-old male with history of low back pain for several years COMPARISON: CT lumbar spine without contrast dated May 03, 2020 TECHNIQUE: Multiplanar multisequence MR images were obtained of lumbar spine with and without IV cont rast. Contrast: 15 cc of MultiHance. FINDINGS: Bone marrow: There is mild Modic endplate degenerative changes seen at L3-4, L4-5 and L5-S1. Distal spinal cord and conus: Normal. Conus is seen to terminate at the L1 level. Visualized retroperitoneum and paraspinal soft tissues: Normal. No lymphadenopathy demonstrated. Vertebral levels: L5-S1: There is severe facet joint degenerative change. There is a broad-based disc osteophyte comple x and loss of disc space height inducing severe central canal narrowing with severe bilateral neural foraminal narrowing. L4-5: There is a broad-based disc osteophyte complex with facet joint degenerative change inducing se osmar central canal narrowing and severe bilateral neural foraminal narrowing. L3-4: There is a broad-based disc osteophyte complex with facet hypertrophy and ligamentum flavum hyp ertrophy inducing moderate central canal narrowing with moderate right and moderate to severe left neural foraminal narrowing. L2-3: There is a broad-based disc bulge with facet joint degenerative change inducing mild bilateral neural foraminal narrowing L1-L2: Is a broad-based disc bulge with facet hypertrophy inducing mild central canal narrowing but n o appreciable neural foraminal narrowing T12-L1: No appreciable central canal or neural foraminal narrowing is evident. At T11-T12, there is mild central canal narrowing due to ligamentum flavum hypertrophy and a mild bro ad-based bulge. There is mild bilateral neural foraminal narrowing, right greater than left Postcontrast series: No abnormal enhancement demonstrated. IMPRESSION: 1. Severe central canal narrowing at L4-5 and L5-S1. 2. Severe bilateral neural foraminal narrowing at L5-S1 and L4-5. 3. Moderate central canal narrowing with moderate right and moderate to severe left neural foraminal narrowing at L3-4. 4. Mild bilateral neural foraminal narrowing at L2-3. 5. Mild central canal narrowing at L1-2. 6. Mild central canal narrowing and mild bilateral neural foraminal narrowing at T11-T12.
[2020-05-03] MEDS ORDERED: Morphine 4 MG/ML VIAL ONE (16:46)
== END 2020-05-03 18:53 ==
LOC: ERS 11:25
DX: N39.0 Urinary tract infection, site not specified (principal); E78.00 Pure hypercholesterolemia, unspecified; Z79.899 Other long term (current) drug therapy
CPT/HCPCS: 36415; 72131; 72158; 80053; 81003; 81015; 83605; 85025; 87086; 96374; 96375; J1885; J2270

== ENCOUNTER 2020-05-17 10:44 | Emergency (ER) | payer MEDICARE ==
--- NOTE | 2020-05-17 20:15 | CON ---
DATE OF CONSULTATION: 05/17/2020 REASON FOR CONSULTATION: Urinary retention. CHIEF COMPLAINT: Unable to urinate. HISTORY OF PRESENT ILLNESS: This is an 84-year-old male with a history of prostate cancer, undergoing radiation with urethral stricture requiring DVIU in 2014. He was recently seen by Dr. Rodriguez on May 05 for [address] Dr. Rodriguez had to place a wire and dilate a stricture. The patient then saw Dr. Sanford, who had his facility attempt a void trial. His catheter was removed there yesterday and he was unable to urinate and so, 24 hours later, it seems they sent him to the emergency room after being unable to replace the catheter. He tells me he has not been able to urinate at all and is beginning to have bladder discomfort. He denies dysuria, flank pain, nausea, vomiting, fevers, or chills. PAST MEDICAL HISTORY: Prostate cancer, urethral stricture, cerebrovascular accident, and hyperlipidemia. PAST SURGICAL HISTORY: Cardiac stents, DVIU, right hip arthroplasty, and hernia repair. FAMILY HISTORY: Reviewed, noncontributory. SOCIAL HISTORY: The patient typically lives at home with his spouse. Nonsmoker. No substance abuse. REVIEW OF SYSTEMS: 12-point systems performed, negative except as mentioned in my HPI. ALLERGIES: ATORVASTATIN. MEDICATIONS: Reviewed. No pertinent urology medications. PHYSICAL EXAMINATION: VITAL SIGNS: Afebrile. Vitals, stable. GENERAL: No acute distress, conversant. HEENT: Head, normocephalic and atraumatic. Extraocular movements intact. Sclerae anicteric. NECK: Supple. Trachea midline. HEART: Regular rate and rhythm. Unlabored breathing. Symmetric chest expansion. ABDOMEN: Soft, nontender, nondistended. : No flank tenderness. No suprapubic tenderness. Bladder nonpalpable. Normal penile exam. Both testicles present. Scrotum nontender. EXTREMITIES: No peripheral edema or cyanosis. SKIN: Warm and dry. NEUROLOGIC: Alert and oriented x3. PSYCHIATRIC: Normal mood and affect. DESCRIPTION OF PROCEDURE: Under sterile conditions, the patient's urethra was filled with lubricating jelly and then an 18-Chinese coude catheter was carefully guided through the prostatic urethra into the bladder draining mildly hematuric urine briefly and then clear urine afterwards. 10 mL was instilled in the balloon. This was connected to bag drainage. ASSESSMENT AND PLAN: Urinary retention. The patient tells me he has followup with Dr. Sanford later next week. I will defer further management of his retention and possible stricture disease to Dr. Sanford. Job ID: [id number]
== END 2020-05-17 13:30 ==
LOC: ERS 10:44
DX: R33.9 Retention of urine, unspecified (principal); E78.00 Pure hypercholesterolemia, unspecified; Z79.899 Other long term (current) drug therapy
CPT/HCPCS: 51702

== ENCOUNTER 2020-07-23 10:11 | Outpatient (CLI) | payer MEDICARE ==
--- NOTE | 2020-07-23 10:48 | RAD ---
ABDOMINAL SURVEY WITH UPRIGHT CHEST AND 2 VIEW ABDOMEN: Upright chest with supine and upright views of abdomen obtained. INDICATION: Abdominal pain. FINDINGS: Lungs appear clear on the upright chest view. Supine and upright views of abdomen show unremarkable bowel gas pattern. Scattered stool and gas in the colon. Small bowel gas pattern is unremarkable. No evidence of free air. There are vascular calcifications. Faint calcifications to the right of the L3 vertebra are indeterm inate and could potentially reside within the ureter and recommend clinical correlation. Prominent hypertrophic spurring from the spine is again noted. Phlebolith calcifications in the pelv is appear stable. IMPRESSION: Unremarkable bowel gas pattern. Small calcifications of the right L3 vertebra are indeterminate. POS: [facility]
== END 2020-07-23 10:12 | disposition home or self-care (01) ==
LOC: RAD-FRANK 10:11
PROVIDERS: ATTEND Nurse Practitioner Family
DX: R14.0 Abdominal distension (gaseous) (principal); G89.4 Chronic pain syndrome; M51.16 Intervertebral disc disorders with radiculopathy, lumbar region; M48.061 Spinal stenosis, lumbar region without neurogenic claudication
CPT/HCPCS: 74022

== ENCOUNTER 2020-08-14 05:37 | Day surgery (SDC) | payer MEDICARE ==
[2020-08-07 11:53] VITALS: BMI 22.7
--- NOTE | 2020-08-13 23:28 | HP ---
HISTORY OF PRESENT ILLNESS: Mr. Hutchins is an 84-year-old gentleman, referred to us for symptoms of neurogenic claudication and radiculopathy with an MRI scan performed at [facility] that reveals rather profound stenosis from L4-S1. He has attempted epidural steroid injections with limited relief and hopes to move forward with discussion for surgical intervention. PAST MEDICAL HISTORY: Significant for chronic pain syndrome, hyperlipidemia. CURRENT MEDICATIONS: 1. Cyclobenzaprine. 2. Rosuvastatin. 3. Gabapentin. 4. Couderay. PAST SURGICAL HISTORY: Hip replacement, cardiac stents. ALLERGIES: NO KNOWN DRUG ALLERGIES. PHYSICAL EXAMINATION: Deferred for telehealth visit. ASSESSMENT: Lumbar stenosis with neurogenic claudication. PLAN: Dr. Lindsey met with the patient, reviewed imaging, and advocated for L4-S1 decompression. He explained to the patient the risks, benefits, and alternatives to the procedure. The patient expressed understanding and elected to move forward with surgery as discussed. I do believe the patient is mentally competent and capable of making medical decisions for himself. We will move forward with surgery as planned. Job ID: [id number]
[2020-08-14] MEDS ORDERED: Fentanyl 250 MCG/5 ML VIAL ONE (06:13)
[2020-08-14] MEDS ORDERED: HYDROmorphone 0.5 MG/0.5 ML SYRINGE ONE (06:14)
[2020-08-14] MEDS ORDERED: Bupivacaine PF 0.5% 30 ML VIAL ONE (06:50)
[2020-08-14] MEDS ORDERED: EPINEPHrine 1 MG/ML AMP ONE (06:50)
[2020-08-14] MEDS ORDERED: Thrombin 5000 UNITS/5 ML VIAL ONE (06:50)
--- NOTE | 2020-08-14 08:49 | OP ---
DATE OF PROCEDURE: 08/14/2020 CAMP MAINTENANCE SUPERVISOR: Dawit Quiñonez PA-C. INDICATION: Pain and weakness. DIAGNOSIS: Lumbar stenosis with neurogenic claudication. PROCEDURES: L4-S1 decompression. ANESTHESIA: General. DESCRIPTION OF PROCEDURE: The patient was brought into the operating room and placed under general anesthesia. He was flipped from the supine to a prone position in the operating room table. A linear incision was planned, spanning to L4-S1. After prepping and draping and after an appropriate preoperative pause, the incision was created. The soft tissues were swept away from midline. Self-retaining retractors were placed in the wound for optimal exposure. After confirming the appropriate level with C-arm fluoroscopy, an Adson rongeur was used to move the spinous process of L4 and L5 and the superior aspect of S1. A high-speed cutting drill bit as well as 2, 3, and 4 mm Kerrisons were used to complete the laminectomy. The laminectomy was more generously performed on the left side to include the medial aspect of the facet joints at L4-L5 and L5-S1, given that is where the bulk of the patient's pain was. After completing the decompression, the wound was irrigated. Hemostasis was maintained throughout. The wound was then closed in anatomic layers, and a pressure dressing was applied. There were no known procedural complications. Job ID: [id number]
[2020-08-14] MEDS ORDERED: Ondansetron HCl/PF 4 MG/2 ML Vial IVP PRN (08:57)
[2020-08-14] MEDS ORDERED: Promethazine HCl 25 MG/ML VIAL IM PRN (08:57)
[2020-08-14] MEDS ORDERED: Promethazine HCl 25 MG/ML VIAL SLOW IVP PRN (08:57)
[2020-08-14] MEDS ORDERED: HYDROmorphone 2 MG/ML VIAL SLOW IVP PRN (08:57)
[2020-08-14] MEDS ORDERED: PHENYLEPHRINE-NS 100 MCG/ML 10 ML SYRINGE ONE (09:05)
[2020-08-14] MEDS ORDERED: Lidocaine 1% PF 5 ML VIAL ONE (09:05)
[2020-08-14] MEDS ORDERED: PROPOFOL 200 MG/20 ML VIAL ONE (09:05)
[2020-08-14] MEDS ORDERED: Rocuronium Bromide 10 MG/ML (10ML VIAL) ONE (09:05)
[2020-08-14] MEDS ORDERED: Glycopyrrolate 0.2 MG/ML 5 ML SYRINGE ONE (09:05)
[2020-08-14] MEDS ORDERED: Ondansetron PF 4 MG/2 ML Vial ONE (09:05)
[2020-08-14] MEDS ORDERED: ePHEDrine 50 MG/ML VIAL ONE (09:05)
[2020-08-14] MEDS ORDERED: Dexamethasone 20 MG/5 ML VIAL ONE (09:05)
[2020-08-14] MEDS ORDERED: Fentanyl 100 MCG/2 ML VIAL ONE (09:16)
== END 2020-08-14 13:00 | disposition home or self-care (01) ==
LOC: SDC 05:37
PROVIDERS: ATTEND Neurological Surgery
PROC: 00NY0ZZ Release Lumbar Spinal Cord, Open Approach (ICD-10-PCS; principal; 2020-08-14)
DX: M48.062 Spinal stenosis, lumbar region with neurogenic claudication (principal); G89.4 Chronic pain syndrome; E78.5 Hyperlipidemia, unspecified; I10 Essential (primary) hypertension; Z79.899 Other long term (current) drug therapy; Z88.8 Allergy status to other drugs, medicaments and biological substances; Z95.5 Presence of coronary angioplasty implant and graft; Z96.649 Presence of unspecified artificial hip joint
CPT/HCPCS: 76000; J0171; J0690; J1100; J1170; J2405; J2704; J3010; J3490; S0020

== ENCOUNTER 2020-11-15 13:58 | Emergency (ER) | payer MEDICARE ==
[2020-11-15 17:11] LABS: Bilirubin Negative (Negative); Blood, Urine Negative (Negative); Clarity Clear (Clear); Glucose, Urine (Dipstick) Normal (Negative); Ketone, Urine 10 mg/dL (Negative); Leukocyte Negative Leu/uL (Negative); Nitrite Negative (Negative); Protein, Urine (Dipstick) Negative (Neg-Trace); Specific Gravity, Urine 1.024 (1.002-1.036); Urobilinogen Normal mg/dL (Less than 2)
[2020-11-15 17:33] LABS: #Eosinphils 0.1 thou/uL (0.0-0.7); #Lymphocytes 2.3 thou/uL (1.20-3.40); #Monocytes 0.5 thou/uL (0.11-0.59); #Neutrophils 3.6 thou/uL (1.40-6.50); %Basophils 0.3 % (0.0-1.0); %Eosinophils 0.9 % (0.0-10.0); %Lymphocytes 35.9 % (21.0-51.0); %Neutrophils 55.8 % (42.0-75.0); Hemoglobin 14.7 g/dL (14.0-18.0); Mean Corpuscular HGB CONC 33.7 g/dL (32.0-36.0); Mean Corpuscular Hemoglobin 32.7 pg (27.0-31.0); Mean Corpuscular Volume 97.1 fL (78.0-98.0); Mean Platelet Volume 6.6 fL (7.4-10.4); Platelet Count 251 thou/uL (130-400); RBC Distribution Width 13.4 % (11.5-14.5); Red Blood Cell (RBC) Count 4.51 mill/uL (4.70-6.10); White Blood Cell (WBC) Count 6.4 thou/uL (4.8-10.8)
[2020-11-15 17:53] LABS: ALT (SGPT) 15 U/L (8-55); AST (SGOT) 22 U/L (5-34); Albumin 4.2 g/dL (3.4-4.8); Alkaline Phosphatase 97 U/L (40-110); Anion Gap 14 mmol/L (10-20); BUN (Urea Nitrogen) 16 mg/dL (8.4-25.7); Bilirubin, Total 0.8 mg/dL (0.2-1.2); CRP (Inflammatory) Less than 0.50 mg/dL (= or < 0.5); Calc. Creatinine Clearance 0 mL/min (70-130); Calcium 10.3 mg/dL (7.8-10.44); Carbon Dioxide 24 mmol/L (23-31); Chloride 105 mmol/L (98-107); Globulin 3.3 g/dL (2.4-3.5); Glucose 91 mg/dL (83-110); Potassium 3.6 mmol/L (3.5-5.1); Protein, Total 7.5 g/dL (5.8-8.1); Sodium 139 mmol/L (136-145)
== END 2020-11-15 19:54 | disposition home or self-care (01) ==
LOC: ERS 13:58
DX: M54.16 Radiculopathy, lumbar region (principal); M25.552 Pain in left hip; R26.9 Unspecified abnormalities of gait and mobility; R20.2 Paresthesia of skin; E78.00 Pure hypercholesterolemia, unspecified; Z79.899 Other long term (current) drug therapy; Z85.46 Personal history of malignant neoplasm of prostate; Z86.73 Personal history of transient ischemic attack (TIA), and cerebral infarction without residual deficits
CPT/HCPCS: 36415; 70450; 80053; 81003; 82274; 85025; 85652; 86140

== ENCOUNTER 2020-11-19 09:28 | Outpatient (CLI) | payer MEDICARE, OTHER ==
[~2020-11-19 09:28] MED LIST changes: +Magnevist 469MG/ML 20 ML VIAL ONE; -Sodium Chloride 0.9% 15 ML NEB ONE
== END 2020-11-19 09:29 | disposition home or self-care (01) ==
LOC: BICMRI 09:28
PROVIDERS: ATTEND Neurological Surgery
DX: M47.26 Other spondylosis with radiculopathy, lumbar region (principal)
CPT/HCPCS: 72158; A9579

== ENCOUNTER 2021-02-10 06:04 | Emergency (ER) | payer MEDICARE ==
[2021-02-10 06:44] LABS: Hemoglobin 12.8 g/dL (14.0-18.0); Mean Corpuscular HGB CONC 32.1 g/dL (32.0-36.0); Mean Corpuscular Hemoglobin 31.3 pg (27.0-31.0); Mean Corpuscular Volume 97.5 fL (78.0-98.0); Mean Platelet Volume 6.7 fL (7.4-10.4); Platelet Count 135 thou/uL (130-400); RBC Distribution Width 12.7 % (11.5-14.5); Red Blood Cell (RBC) Count 4.11 mill/uL (4.70-6.10); White Blood Cell (WBC) Count 7.5 thou/uL (4.8-10.8)
[2021-02-10 07:04] LABS: Band 26 % (5-11); Lymphocytes 1 % (21-51); MDiff Complete? YES; Neutrophil 73 % (42-75)
[2021-02-10 07:06] LABS: ALT (SGPT) 21 U/L (8-55); AST (SGOT) 24 U/L (5-34); Albumin 3.4 g/dL (3.4-4.8); Alkaline Phosphatase 95 U/L (40-110); Anion Gap 13 mmol/L (10-20); BUN (Urea Nitrogen) 15 mg/dL (8.4-25.7); Calc. Creatinine Clearance 0 mL/min (70-130); Calcium 9.7 mg/dL (7.8-10.44); Carbon Dioxide 24 mmol/L (23-31); Chloride 108 mmol/L (98-107); Glucose 105 mg/dL (83-110); Protein, Total 6.4 g/dL (5.8-8.1); Sodium 141 mmol/L (136-145)
[2021-02-10 07:41] LABS: Bilirubin Negative (Negative); Blood, Urine 2+ (Negative); Clarity Extra Turbid (Clear); Glucose, Urine (Dipstick) Normal (Negative); Ketone, Urine Negative (Negative); Leukocyte 500 Leu/uL (Negative); Nitrite Negative (Negative); Protein, Urine (Dipstick) 50 mg/dL (Neg-Trace); RBC/HPF 21-50 HPF (0-3); Specific Gravity, Urine 1.019 (1.002-1.036); Squamous Epithelial None Seen HPF (0-3); WBC/HPF Greater than 50 HPF (0-3); pH, Urine 6.5 (5.0-9.0)
[2021-02-10 07:43] LABS: Bacteria/HPF 1+ HPF (None Seen)
[2021-02-10] MEDS ORDERED: cefTRIAXone\\ROCEPHIN 2 GM VIAL ONE (07:59)
[2021-02-10 08:20] LABS: SARS-CoV-2 NAA Rapid Test Not Detected (NotDetected)
== END 2021-02-10 09:37 | disposition home or self-care (01) ==
LOC: ERS 06:04
DX: N39.0 Urinary tract infection, site not specified (principal); E78.00 Pure hypercholesterolemia, unspecified; Z20.822 Contact with and (suspected) exposure to COVID-19; Z86.73 Personal history of transient ischemic attack (TIA), and cerebral infarction without residual deficits; Z79.899 Other long term (current) drug therapy
CPT/HCPCS: 0240U; 71045; 80053; 83605; 85025; 87040; 87077; 87086; 87149 ×2; 36415; 81003; 81015; 87186; 96365; J0696

== ENCOUNTER 2021-02-11 11:50 | Inpatient (IN) | payer MEDICARE ==
[2021-02-11 13:23] LABS: Hemoglobin 13.4 g/dL (14.0-18.0); Mean Corpuscular HGB CONC 31.6 g/dL (32.0-36.0); Mean Corpuscular Volume 97.9 fL (78.0-98.0); Mean Platelet Volume 7.1 fL (7.4-10.4); Platelet Count 138 thou/uL (130-400); Red Blood Cell (RBC) Count 4.34 mill/uL (4.70-6.10); White Blood Cell (WBC) Count 12.7 thou/uL (4.8-10.8)
[2021-02-11 13:41] LABS: ALT (SGPT) 47 U/L (8-55); AST (SGOT) 68 U/L (5-34); Albumin 3.6 g/dL (3.4-4.8); Alkaline Phosphatase 94 U/L (40-110); Anion Gap 17 mmol/L (10-20); BUN (Urea Nitrogen) 24 mg/dL (8.4-25.7); Bilirubin, Total 1.1 mg/dL (0.2-1.2); Calc. Creatinine Clearance 0 mL/min (70-130); Calcium 10.3 mg/dL (7.8-10.44); Carbon Dioxide 20 mmol/L (23-31); Chloride 104 mmol/L (98-107); Globulin 3.4 g/dL (2.4-3.5); Glucose 122 mg/dL (83-110); Potassium 3.9 mmol/L (3.5-5.1); Sodium 137 mmol/L (136-145)
[2021-02-11 13:58] LABS: Band 42 % (5-11); Hypochromia SLIGHT = 6-15 cells (100X) (0-5/hpf); Lymphocytes 7 % (21-51); MDiff Complete? YES; Monocytes 7 % (0-10); Neutrophil 42 % (42-75); Platelet Morphology Comment Appears Adequate; Reactive Lymphocytes 2 % (0-10); Tear Drops SLIGHT = 2-5 cells (100X) (0-1/hpf)
[2021-02-11] MEDS ORDERED: Cefepime 2 GM VIAL ONE (14:32)
[2021-02-11] MEDS ORDERED: HYDROcodone/Acetaminophen 5/325 mg Tablet PO PRN (15:19)
[2021-02-11] MEDS ORDERED: Ondansetron ODT 4 MG TAB PO PRN (15:19)
[2021-02-11] MEDS ORDERED: Bisacodyl 5 MG TAB PO PRN (15:19)
[2021-02-11] MEDS ORDERED: Piperacillin/Tazobactam 3.375 GM in Sodium Chloride 0.9% 100 ML IVPB SCH ×3 (15:30→20:00)
[2021-02-11] MEDS: Sodium Chloride 0.9% 1,000 ML IV SCH (17:35)
[2021-02-11 18:04] VITALS: BMI 24.1
[2021-02-11] MEDS: HYDROcodone/Acetaminophen 10/325 mg Tablet PO PRN (18:14)
[2021-02-11] MEDS ORDERED: Pravastatin Sodium 40 MG TAB PO SCH (21:00)
[2021-02-11] MEDS: Famotidine 20 MG TAB PO SCH (21:25)
[2021-02-11] MEDS: Temazepam 15 MG CAP PO SCH (21:25)
[2021-02-12] MEDS: Sodium Chloride 0.9% 1,000 ML IV SCH ×4 (00:16→20:28)
[2021-02-12] MEDS: Piperacillin/Tazobactam 3.375 GM in Sodium Chloride 0.9% 100 ML IVPB SCH ×2 (02:22→09:18)
[2021-02-12 06:50] LABS: Hemoglobin 12.3 g/dL (14.0-18.0); Mean Corpuscular HGB CONC 33.3 g/dL (32.0-36.0); Mean Platelet Volume 7.4 fL (7.4-10.4); Platelet Count 123 thou/uL (130-400); Red Blood Cell (RBC) Count 3.85 mill/uL (4.70-6.10); White Blood Cell (WBC) Count 12.5 thou/uL (4.8-10.8)
[2021-02-12 06:53] LABS: Band 26 % (5-11); Lymphocytes 12 % (21-51); MDiff Complete? YES; Monocytes 6 % (0-10); Neutrophil 52 % (42-75); Reactive Lymphocytes 3 % (0-10)
[2021-02-12 07:00] LABS: ALT (SGPT) 34 U/L (8-55); AST (SGOT) 45 U/L (5-34); Alkaline Phosphatase 92 U/L (40-110); Anion Gap 13 mmol/L (10-20); BUN (Urea Nitrogen) 20 mg/dL (8.4-25.7); Bilirubin, Total 0.8 mg/dL (0.2-1.2); Calc. Creatinine Clearance 62 mL/min (70-130); Calcium 9.3 mg/dL (7.8-10.44); Carbon Dioxide 21 mmol/L (23-31); Chloride 108 mmol/L (98-107); Globulin 2.8 g/dL (2.4-3.5); Glucose 133 mg/dL (83-110); Potassium 3.7 mmol/L (3.5-5.1); Protein, Total 5.8 g/dL (5.8-8.1); Sodium 138 mmol/L (136-145)
[2021-02-12] MEDS: Famotidine 20 MG TAB PO SCH ×2 (09:20→20:24)
[2021-02-12] MEDS: HYDROcodone/Acetaminophen 10/325 mg Tablet PO PRN ×2 (09:21→17:52)
[2021-02-12] MEDS ORDERED: Amlodipine 10 MG TAB PO SCH (11:45)
[2021-02-12] MEDS: Ciprofloxacin 500 MG TAB PO SCH (20:24)
[2021-02-12] MEDS: Temazepam 15 MG CAP PO SCH (20:24)
[2021-02-12] MEDS: Rosuvastatin 20 MG TAB PO SCH (20:24)
[2021-02-13] MEDS: Ciprofloxacin 500 MG TAB PO SCH ×2 (06:04→20:12)
[2021-02-13] MEDS: Sodium Chloride 0.9% 1,000 ML IV SCH (06:04)
[2021-02-13] MEDS: Acetaminophen 325 MG TAB PO PRN (06:07)
[2021-02-13] MEDS: HYDROcodone/Acetaminophen 10/325 mg Tablet PO PRN ×3 (08:47→19:54)
[2021-02-13] MEDS: Famotidine 20 MG TAB PO SCH ×2 (08:49→20:16)
[2021-02-13] MEDS: Amlodipine 10 MG TAB PO SCH (08:50)
[2021-02-13] MEDS: Senokot S 8.6-50 MG TAB PO PRN (20:11)
[2021-02-13] MEDS: Rosuvastatin 20 MG TAB PO SCH (20:16)
[2021-02-13] MEDS: Temazepam 15 MG CAP PO SCH (20:16)
[2021-02-14] MEDS: HYDROcodone/Acetaminophen 10/325 mg Tablet PO PRN ×3 (03:55→18:15)
[2021-02-14 05:57] LABS: #Eosinphils 0.1 thou/uL (0.0-0.7); #Lymphocytes 1.2 thou/uL (1.20-3.40); #Monocytes 0.9 thou/uL (0.11-0.59); #Neutrophils 9.4 thou/uL (1.40-6.50); %Eosinophils 1.1 % (0.0-10.0); %Lymphocytes 10.5 % (21.0-51.0); %Monocytes 7.5 % (0.0-10.0); %Neutrophils 80.8 % (42.0-75.0); Hemoglobin 12.1 g/dL (14.0-18.0); Mean Corpuscular HGB CONC 33.4 g/dL (32.0-36.0); Mean Corpuscular Volume 95.8 fL (78.0-98.0); Mean Platelet Volume 6.9 fL (7.4-10.4); Platelet Count 192 thou/uL (130-400); Red Blood Cell (RBC) Count 3.78 mill/uL (4.70-6.10); White Blood Cell (WBC) Count 11.7 thou/uL (4.8-10.8)
[2021-02-14] MEDS: Senokot S 8.6-50 MG TAB PO PRN ×2 (05:57→20:35)
[2021-02-14] MEDS: Ciprofloxacin 500 MG TAB PO SCH (05:57)
[2021-02-14] MEDS: Polyethylene Glycol 3350 17 GM Packet PO SCH (08:36)
[2021-02-14] MEDS: Famotidine 20 MG TAB PO SCH ×2 (08:36→20:35)
[2021-02-14] MEDS: Amlodipine 10 MG TAB PO SCH (08:36)
[2021-02-14] MEDS: Temazepam 15 MG CAP PO SCH (20:35)
[2021-02-14] MEDS: Rosuvastatin 20 MG TAB PO SCH (20:35)
[2021-02-15] MEDS: HYDROcodone/Acetaminophen 10/325 mg Tablet PO PRN ×2 (01:16→14:08)
[2021-02-15 06:38] LABS: #Eosinphils 0.1 thou/uL (0.0-0.7); #Lymphocytes 1.1 thou/uL (1.20-3.40); #Monocytes 0.9 thou/uL (0.11-0.59); #Neutrophils 10.2 thou/uL (1.40-6.50); %Basophils 0.4 % (0.0-1.0); %Eosinophils 0.7 % (0.0-10.0); %Lymphocytes 9.2 % (21.0-51.0); %Monocytes 7.1 % (0.0-10.0); %Neutrophils 82.7 % (42.0-75.0); Hemoglobin 11.8 g/dL (14.0-18.0); Mean Corpuscular HGB CONC 34.8 g/dL (32.0-36.0); Mean Corpuscular Hemoglobin 33.1 pg (27.0-31.0); Mean Corpuscular Volume 95.1 fL (78.0-98.0); Mean Platelet Volume 6.6 fL (7.4-10.4); Platelet Count 242 thou/uL (130-400); RBC Distribution Width 13.1 % (11.5-14.5); Red Blood Cell (RBC) Count 3.56 mill/uL (4.70-6.10); White Blood Cell (WBC) Count 12.4 thou/uL (4.8-10.8)
[2021-02-15] MEDS: Amlodipine 10 MG TAB PO SCH (08:51)
[2021-02-15] MEDS: Polyethylene Glycol 3350 17 GM Packet PO SCH (08:51)
[2021-02-15] MEDS: Famotidine 20 MG TAB PO SCH ×2 (08:51→20:51)
[2021-02-15] MEDS: Senokot S 8.6-50 MG TAB PO PRN (08:56)
[2021-02-15] MEDS ORDERED: Bisacodyl 10 MG SUPP PR PRN (13:38)
[2021-02-15] MEDS ORDERED: Bisacodyl 10 MG SUPP PR SCH (14:15)
[2021-02-15] MEDS: Temazepam 15 MG CAP PO SCH (20:51)
[2021-02-15] MEDS: Rosuvastatin 20 MG TAB PO SCH (20:51)
[2021-02-15] MEDS: Acetaminophen 325 MG TAB PO PRN (20:51)
[2021-02-16] MEDS: Acetaminophen 325 MG TAB PO PRN (05:48)
[2021-02-16] MEDS: Famotidine 20 MG TAB PO SCH (09:08)
[2021-02-16] MEDS: Polyethylene Glycol 3350 17 GM Packet PO SCH (09:09)
[2021-02-16] MEDS: Amlodipine 10 MG TAB PO SCH (09:09)
[2021-02-16] MEDS: HYDROcodone/Acetaminophen 10/325 mg Tablet PO PRN (10:52)
[2021-02-16 13:27] VITALS: BP 155/73; TEMP 98.7
== END 2021-02-16 14:21 | DRG 690 ==
LOC: ERS 11:50 → SUATTDRO 11:50 → ERHOLD 15:00 → T4-A 17:14
PROVIDERS: ADMIT Family Medicine; ATTEND Internal Medicine
PROC: 0T9B70Z Drainage of Bladder with Drainage Device, Via Natural or Artificial Opening (ICD-10-PCS; principal; 2021-02-14)
DX: N30.01 Acute cystitis with hematuria (principal); I69.351 Hemiplegia and hemiparesis following cerebral infarction affecting right dominant side; R78.81 Bacteremia; Z20.822 Contact with and (suspected) exposure to COVID-19; I25.10 Atherosclerotic heart disease of native coronary artery without angina pectoris; M54.16 Radiculopathy, lumbar region; G89.29 Other chronic pain; N40.1 Benign prostatic hyperplasia with lower urinary tract symptoms; R33.8 Other retention of urine; K59.00 Constipation, unspecified; E78.00 Pure hypercholesterolemia, unspecified; Z96.641 Presence of right artificial hip joint; E78.5 Hyperlipidemia, unspecified; D69.6 Thrombocytopenia, unspecified; A49.8 Other bacterial infections of unspecified site; N35.819 Other urethral stricture, male, unspecified site; Z95.5 Presence of coronary angioplasty implant and graft; Z87.440 Personal history of urinary (tract) infections; Z85.46 Personal history of malignant neoplasm of prostate; Z92.3 Personal history of irradiation; Z88.8 Allergy status to other drugs, medicaments and biological substances; Z79.899 Other long term (current) drug therapy; Z98.890 Other specified postprocedural states
CPT/HCPCS: 36415; 80053; 83605; 85007; 85025; 85027; 87040; 87086; 96365; J0692; J0744; J2543; J3490

== ENCOUNTER 2021-05-07 09:17 | Outpatient (CLI) | payer MEDICARE ==
[2020-08-12 11:26] LABS: Hemoglobin 11.6 g/dL (14.0-18.0); Mean Corpuscular HGB CONC 31.8 G/DL (32.0-36.0); Mean Corpuscular Hemoglobin 29.6 PG (27.0-33.0); Mean Corpuscular Volume 93.1 fl (80.0-100.0); Mean Platelet Volume 8.3 fl (7.4-10.4); Platelet Count 293 10x3/uL (130-400); RBC Distribution Width 14.4 % (11.5-14.5); Red Blood Cell (RBC) Count 3.92 10x6/uL (4.40-5.80); White Blood Cell (WBC) Count 7.4 10x3/uL (4.5-11.0)
[2020-08-12 11:51] LABS: Anion Gap 17 mmol/L (10-20); BUN (Urea Nitrogen) 13 mg/dL (8.4-25.7); Calc. Creatinine Clearance 0 mL/min (70-130); Calcium 9.9 mg/dL (7.8-10.44); Carbon Dioxide 26 mmol/L (23-31); Chloride 102 mmol/L (98-107); Glucose 95 mg/dL (83-110); Potassium 4.5 mmol/L (3.5-5.1); Sodium 140 mmol/L (136-145)
[2020-08-13 06:32] LABS: SARS-CoV-2 MS2 Positive; SARS-CoV-2 N Gene Negative; SARS-CoV-2 S Gene Negative; SARS-CoV-2 by NAA Not Detected (NotDetected); SARS-CoV-2 orf1ab Negative
[2021-05-07 10:53] LABS: Hemoglobin 12.2 g/dL (13.5-17.5); Mean Corpuscular HGB CONC 31.6 g/dL (32.0-36.0); Mean Corpuscular Hemoglobin 30.1 pg (27.0-33.0); Mean Corpuscular Volume 95.3 fl (81.2-95.1); Mean Platelet Volume 8.7 fl (7.4-10.4); Platelet Count 278 10x3/uL (150-450); RBC Distribution Width 15.2 % (11.5-14.5); Red Blood Cell (RBC) Count 4.05 10x6/uL (4.32-5.72); White Blood Cell (WBC) Count 5.5 10x3/uL (3.5-10.5)
[2021-05-07 11:28] LABS: Anion Gap 12 mmol/L (10-20); BUN (Urea Nitrogen) 20 mg/dL (8.4-25.7); Calc. Creatinine Clearance 0 mL/min (70-130); Calcium 10.9 mg/dL (7.8-10.44); Carbon Dioxide 28 mmol/L (23-31); Chloride 107 mmol/L (98-107); Glucose 101 mg/dL (83-110); Potassium 4.6 mmol/L (3.5-5.1); Sodium 142 mmol/L (136-145)
[2021-05-07 19:46] LABS: SARS-CoV-2 PCR by NAA Not Detected (NotDetected)
== END 2021-05-07 09:18 | disposition home or self-care (01) ==
LOC: LABBT 09:17
PROVIDERS: ATTEND Neurological Surgery
DX: Z01.818 Encounter for other preprocedural examination (principal); M54.16 Radiculopathy, lumbar region; M48.061 Spinal stenosis, lumbar region without neurogenic claudication; Z20.822 Contact with and (suspected) exposure to COVID-19
CPT/HCPCS: 80048 ×2; 85027 ×2; 93005 ×2; U0003 ×2; U0005; 93010

== ENCOUNTER 2021-05-12 05:36 | Day surgery (SDC) | payer MEDICARE ==
[2021-05-09 10:18] VITALS: BMI 23.3
[2021-05-12] MEDS ORDERED: ceFAZolin 2 GM/DEX 5% 100 ML BAG ONE ×2 (06:07→11:15)
[2021-05-12] MEDS ORDERED: Fentanyl 100 MCG/2 ML VIAL ONE (06:22)
[2021-05-12] MEDS ORDERED: EPINEPHrine 1 MG/ML AMP ONE (06:36)
[2021-05-12] MEDS ORDERED: Bupivacaine PF 0.5% 30 ML VIAL ONE (06:36)
[2021-05-12] MEDS ORDERED: Thrombin 5000 UNITS/5 ML VIAL ONE (06:36)
[2021-05-12] MEDS ORDERED: Lidocaine 1% PF 5 ML VIAL ONE (07:03)
[2021-05-12] MEDS ORDERED: Ketorolac Tromethamine 30 MG/ML VIAL ONE (07:03)
[2021-05-12] MEDS ORDERED: ePHEDrine 50 MG/ML VIAL ONE (07:03)
[2021-05-12] MEDS ORDERED: Rocuronium Bromide 10 MG/ML (10ML VIAL) ONE (07:03)
[2021-05-12] MEDS ORDERED: PROPOFOL 200 MG/20 ML VIAL ONE (07:03)
[2021-05-12] MEDS ORDERED: Glycopyrrolate 0.2 MG/ML 5 ML SYRINGE ONE (07:03)
[2021-05-12] MEDS ORDERED: Ondansetron PF 4 MG/2 ML Vial ONE (07:03)
[2021-05-12] MEDS ORDERED: Dexamethasone 20 MG/5 ML VIAL ONE (07:03)
[2021-05-12] MEDS ORDERED: Tamsulosin HCl 0.4 MG CAP ONE (08:59)
[2021-05-12] MEDS ORDERED: HYDROcodone/Acetaminophen 5/325 mg Tablet ONE (11:05)
== END 2021-05-12 11:55 | disposition home or self-care (01) ==
LOC: SDC 05:36
PROVIDERS: ATTEND Neurological Surgery
PROC: 01NB0ZZ Release Lumbar Nerve, Open Approach (ICD-10-PCS; principal; 2021-05-12)
DX: M54.16 Radiculopathy, lumbar region (principal); I10 Essential (primary) hypertension; E78.5 Hyperlipidemia, unspecified; Z85.46 Personal history of malignant neoplasm of prostate; Z86.73 Personal history of transient ischemic attack (TIA), and cerebral infarction without residual deficits; Z79.899 Other long term (current) drug therapy; Z88.8 Allergy status to other drugs, medicaments and biological substances
CPT/HCPCS: 76000; J0171; J1100; J1885; J2405; J2704; J3010; J3490; S0020

== ENCOUNTER 2022-09-30 10:16 | Outpatient (CLI) | payer MEDICARE | END 2022-09-30 10:17 | disposition home or self-care (01) | LOC: RAD 10:16 | PROVIDERS: ATTEND Family Medicine | DX: M25.552 Pain in left hip (principal); M25.562 Pain in left knee; M16.12 Unilateral primary osteoarthritis, left hip ==

== ENCOUNTER 2022-11-06 12:22 | Outpatient (CLI) | payer MEDICARE | END 2022-11-06 12:23 | disposition home or self-care (01) | LOC: TBSIIMAG 12:22 | PROVIDERS: ATTEND Family Medicine | DX: M25.552 Pain in left hip (principal); M47.26 Other spondylosis with radiculopathy, lumbar region; M48.061 Spinal stenosis, lumbar region without neurogenic claudication; K57.30 Diverticulosis of large intestine without perforation or abscess without bleeding; M16.12 Unilateral primary osteoarthritis, left hip; M67.854 Other specified disorders of tendon, left hip; M25.852 Other specified joint disorders, left hip | CPT/HCPCS: 72148 ==

== ENCOUNTER 2023-03-28 12:27 | Inpatient (IN) | payer MEDICARE ==
[~2023-03-28 12:27] MED LIST changes: +Iopamidol-370 76% 500 ML MDV (1 ML CHARGE) ONE; -Magnevist 469MG/ML 20 ML VIAL ONE
[2023-03-28] MEDS ORDERED: Ondansetron PF 4 MG/2 ML Vial ONE (12:57)
[2023-03-28] MEDS ORDERED: Morphine 4 MG/ML VIAL ONE (12:59)
[2023-03-28 13:09] LABS: #Monocytes 0.8 thou/uL (0.11-0.59); #Neutrophils 12.6 thou/uL (1.40-6.50); %Basophils 0.1 % (0.0-1.0); %Lymphocytes 3.6 % (21.0-51.0); %Neutrophils 89.9 % (42.0-75.0); Hematocrit 37.9 % (42.0-52.0); Hemoglobin 13.1 g/dL (14.0-18.0); Mean Corpuscular HGB CONC 34.6 g/dL (32.0-36.0); Mean Corpuscular Hemoglobin 32.4 pg (27.0-31.0); Mean Corpuscular Volume 93.8 fl (78.0-98.0); Mean Platelet Volume 8.7 fL (7.4-10.4); Platelet Count 148 10x3/uL (130-400); RBC Distribution Width 13.3 % (11.5-14.5); Red Blood Cell (RBC) Count 4.04 mill/uL (4.70-6.10)
[2023-03-28 13:28] LABS: SARS-CoV-2 NAA Rapid Test Not Detected (NotDetected)
[2023-03-28 13:35] LABS: Troponin I 0.029 ng/mL (< 0.028)
[2023-03-28 13:42] LABS: ALT (SGPT) 14 U/L (8-55); AST (SGOT) 19 U/L (5-34); Albumin 3.7 g/dL (3.4-4.8); Alkaline Phosphatase 48 U/L (40-110); Anion Gap 12 mmol/L (10-20); Bilirubin, Total 1.4 mg/dL (0.2-1.2); Calc. Creatinine Clearance 0 mL/min (70-130); Calcium 9.8 mg/dL (7.8-10.44); Carbon Dioxide 24 mmol/L (23-31); Chloride 101 mmol/L (98-107); Estimated GFR 84; Globulin 2.7 g/dL (2.4-3.5); Glucose 129 mg/dL (83-110); Lipase 9 U/L (8-78); Potassium 3.2 mmol/L (3.5-5.1); Protein, Total 6.4 g/dL (5.8-8.1); Sodium 134 mmol/L (136-145)
[2023-03-28 13:44] LABS: BUN (Urea Nitrogen) 14 mg/dL (8.4-25.7)
[2023-03-28 13:51] LABS: Bacteria/HPF 4+ HPF (None Seen); Bilirubin Negative (Negative); Blood, Urine 1+ (Negative); CAUTI Indications for Culture Pelvic or flank pain; Clarity Turbid (Clear); Glucose, Urine (Dipstick) Normal (Negative); Ketone, Urine Trace mg/dL (Negative); Leukocyte 500 Leu/uL (Negative); Nitrite 2+ (Negative); Protein, Urine (Dipstick) 30 mg/dL (Neg-Trace); Renal Epithelial 0-3 HPF (None Seen); Specific Gravity, Urine 1.017 (1.002-1.036); Squamous Epithelial 0-3 HPF (0-3); Urobilinogen Normal mg/dL (Less than 2); WBC/HPF Greater than 50 HPF (0-3)
[2023-03-28 13:52] LABS: Urine Culture Reflex Yes Yes
[2023-03-28] MEDS ORDERED: cefTRIAXone (ROCEPHIN) 1 GM VIAL ONE (14:28)
[2023-03-28] MEDS ORDERED: Iopamidol 15 ML ONE (15:06)
[2023-03-28] MEDS ORDERED: HYDROcodone/Acetaminophen 5/325 mg Tablet PO PRN (15:17)
[2023-03-28] MEDS ORDERED: Ondansetron PF 4 MG/2 ML Vial IVP PRN (15:17)
[2023-03-28] MEDS ORDERED: PHENYLEPHRINE-NS 100 MCG/ML 10 ML SYRINGE ONE (15:32)
[2023-03-28] MEDS ORDERED: Rocuronium Bromide 10 MG/ML (10ML VIAL) ONE (15:43)
[2023-03-28] MEDS ORDERED: Lidocaine 1% PF 5 ML VIAL ONE (15:43)
[2023-03-28] MEDS ORDERED: NEOSTIGMINE 3 MG/3 ML SYR 3 MG/3 ML SYRINGE ONE (15:43)
[2023-03-28] MEDS ORDERED: Glycopyrrolate 0.2 MG/ML 5 ML SYRINGE ONE (15:43)
[2023-03-28] MEDS ORDERED: PROPOFOL 200 MG/20 ML VIAL ONE (15:43)
[2023-03-28] MEDS ORDERED: diphenhydrAMINE 50 MG/ML VIAL IVP PRN (16:18)
[2023-03-28] MEDS ORDERED: Morphine 2 MG/ML VIAL SLOW IVP PRN (16:18)
[2023-03-28] MEDS ORDERED: Oxybutynin 5 MG TAB PO PRN (16:18)
[2023-03-28] MEDS ORDERED: Mag-Al 1200 mg/1200 mg/30 ML UDCUP PO PRN (16:18)
[2023-03-28] MEDS ORDERED: SUGAMMADEX SODIUM 200 MG/2 ML VIAL ONE (16:20)
[2023-03-28] MEDS ORDERED: Promethazine HCl 25 MG/ML VIAL IM PRN (16:24)
[2023-03-28] MEDS ORDERED: Ondansetron HCl/PF 4 MG/2 ML Vial IVP PRN (16:24)
[2023-03-28] MEDS ORDERED: Phenazopyridine HCl 95 MG TAB PO PRN (16:28)
[2023-03-28] MEDS ORDERED: Acetaminophen 325 MG/10.15 ML UDCUP ONE (16:52)
[2023-03-28] MEDS ORDERED: Acetaminophen 325 MG TAB ONE (16:52)
[2023-03-28] MEDS: Acetaminophen 325 MG TAB PO PRN (16:56)
[2023-03-28] MEDS: Sodium Chloride 0.9% 1,000 ML IV SCH (16:56)
[2023-03-28 17:31] LABS: Troponin I 0.042 ng/mL (< 0.028)
[2023-03-28 19:33] LABS: Troponin I 0.071 ng/mL (< 0.028)
[2023-03-28] MEDS: Docusate 100 MG CAP PO SCH (20:47)
[2023-03-28 22:01] VITALS: BMI 26.2
[2023-03-29] MEDS: Sodium Chloride 0.9% 1,000 ML IV SCH ×2 (01:25→12:19)
[2023-03-29 06:49] LABS: #Neutrophils 14.4 thou/uL (1.40-6.50); %Basophils 0.2 % (0.0-1.0); %Lymphocytes 6.9 % (21.0-51.0); Hematocrit 38.6 % (42.0-52.0); Hemoglobin 12.6 g/dL (14.0-18.0); Mean Corpuscular HGB CONC 32.6 g/dL (32.0-36.0); Mean Corpuscular Hemoglobin 32.6 pg (27.0-31.0); Mean Platelet Volume 8.9 fL (7.4-10.4); Platelet Count 132 10x3/uL (130-400); RBC Distribution Width 13.9 % (11.5-14.5); Red Blood Cell (RBC) Count 3.87 mill/uL (4.70-6.10); White Blood Cell (WBC) Count 16.8 10x3/uL (4.8-10.8)
[2023-03-29 07:07] LABS: Mean Corpuscular Volume 99.7 fl (78.0-98.0)
[2023-03-29 07:11] LABS: Anion Gap 11 mmol/L (10-20); BUN (Urea Nitrogen) 13 mg/dL (8.4-25.7); Calc. Creatinine Clearance 55 mL/min (70-130); Calcium 8.7 mg/dL (7.8-10.44); Carbon Dioxide 22 mmol/L (23-31); Chloride 104 mmol/L (98-107); Estimated GFR 71; Glucose 128 mg/dL (83-110); Potassium 3.4 mmol/L (3.5-5.1); Sodium 134 mmol/L (136-145)
[2023-03-29] MEDS ORDERED: Potassium Chloride 20 MEQ TAB PO SCH (08:15)
[2023-03-29] MEDS: Docusate 100 MG CAP PO SCH ×2 (08:29→20:11)
[2023-03-29] MEDS: Tamsulosin HCl 0.4 MG CAP PO SCH (08:33)
[2023-03-29] MEDS ORDERED: cefTRIAXone\\ROCEPHIN 1 GM in Sodium Chloride 0.9% 100 ML IVPB SCH (15:00)
[2023-03-29] MEDS: cefTRIAXone\\ROCEPHIN 2 GM in Sodium Chloride 0.9% 100 ML IVPB SCH (16:24)
[2023-03-29] MEDS: Senokot S 8.6-50 MG TAB PO PRN (20:11)
[2023-03-30] MEDS: Sodium Chloride 0.9% 1,000 ML IV SCH ×3 (04:34→15:52)
[2023-03-30 07:30] LABS: #Eosinphils 0.1 thou/uL (0.0-0.7); #Monocytes 0.8 thou/uL (0.11-0.59); %Basophils 0.2 % (0.0-1.0); %Eosinophils 0.8 % (0.0-10.0); %Lymphocytes 9.6 % (21.0-51.0); %Monocytes 7.7 % (0.0-10.0); %Neutrophils 81.1 % (42.0-75.0); Hematocrit 33.8 % (42.0-52.0); Hemoglobin 11.2 g/dL (14.0-18.0); Mean Corpuscular HGB CONC 33.1 g/dL (32.0-36.0); Mean Corpuscular Hemoglobin 32.5 pg (27.0-31.0); Platelet Count 136 10x3/uL (130-400); RBC Distribution Width 13.7 % (11.5-14.5); Red Blood Cell (RBC) Count 3.45 mill/uL (4.70-6.10); White Blood Cell (WBC) Count 9.9 10x3/uL (4.8-10.8)
[2023-03-30 07:50] LABS: Anion Gap 10 mmol/L (10-20); BUN (Urea Nitrogen) 13 mg/dL (8.4-25.7); Calc. Creatinine Clearance 61 mL/min (70-130); Calcium 8.9 mg/dL (7.8-10.44); Carbon Dioxide 25 mmol/L (23-31); Chloride 106 mmol/L (98-107); Estimated GFR 79; Glucose 116 mg/dL (83-110); Potassium 3.6 mmol/L (3.5-5.1); Sodium 137 mmol/L (136-145)
[2023-03-30] MEDS: Docusate 100 MG CAP PO SCH ×2 (09:12→21:31)
[2023-03-30] MEDS: Acetaminophen 325 MG TAB PO PRN (09:12)
[2023-03-30] MEDS: Tamsulosin HCl 0.4 MG CAP PO SCH (09:13)
[2023-03-30] MEDS: cefTRIAXone\\ROCEPHIN 2 GM in Sodium Chloride 0.9% 100 ML IVPB SCH (15:50)
[2023-03-30] MEDS: Senokot S 8.6-50 MG TAB PO PRN (21:31)
[2023-03-31] MEDS ORDERED: Ipratropium/Albuterol 3 ML NEB NEB SCH (00:30)
[2023-03-31] MEDS: Sodium Chloride 0.9% 1,000 ML IV SCH (03:07)
[2023-03-31] MEDS: Acetaminophen 325 MG TAB PO PRN (03:12)
[2023-03-31 06:09] LABS: #Eosinphils 0.1 thou/uL (0.0-0.7); #Monocytes 0.6 thou/uL (0.11-0.59); #Neutrophils 6.7 thou/uL (1.40-6.50); %Basophils 0.2 % (0.0-1.0); %Eosinophils 1.6 % (0.0-10.0); %Lymphocytes 9.7 % (21.0-51.0); %Monocytes 6.9 % (0.0-10.0); %Neutrophils 81.2 % (42.0-75.0); Hematocrit 32.2 % (42.0-52.0); Hemoglobin 10.4 g/dL (14.0-18.0); Mean Corpuscular HGB CONC 32.3 g/dL (32.0-36.0); Mean Corpuscular Hemoglobin 31.3 pg (27.0-31.0); Mean Platelet Volume 9.1 fL (7.4-10.4); Platelet Count 129 10x3/uL (130-400); RBC Distribution Width 13.7 % (11.5-14.5); Red Blood Cell (RBC) Count 3.32 mill/uL (4.70-6.10); White Blood Cell (WBC) Count 8.2 10x3/uL (4.8-10.8)
[2023-03-31 06:29] LABS: Anion Gap 10 mmol/L (10-20); BUN (Urea Nitrogen) 13 mg/dL (8.4-25.7); Calc. Creatinine Clearance 65 mL/min (70-130); Calcium 8.8 mg/dL (7.8-10.44); Carbon Dioxide 24 mmol/L (23-31); Chloride 106 mmol/L (98-107); Estimated GFR 84; Glucose 125 mg/dL (83-110); Potassium 3.4 mmol/L (3.5-5.1); Sodium 137 mmol/L (136-145)
[2023-03-31] MEDS: Docusate 100 MG CAP PO SCH ×2 (09:17→20:21)
[2023-03-31] MEDS: Tamsulosin HCl 0.4 MG CAP PO SCH (09:17)
[2023-03-31] MEDS: cefTRIAXone\\ROCEPHIN 2 GM in Sodium Chloride 0.9% 100 ML IVPB SCH (15:04)
[2023-03-31] MEDS ORDERED: Senokot S 8.6-50 MG TAB PO PRN (15:15)
[2023-03-31 20:17] LABS: Bacteria/HPF None Seen HPF (None Seen); Bilirubin Negative (Negative); Blood, Urine 2+ (Negative); CAUTI Indications for Culture Urological Procedure; Clarity Clear (Clear); Glucose, Urine (Dipstick) Normal (Negative); Ketone, Urine Negative (Negative); Leukocyte 75 Leu/uL (Negative); Nitrite Negative (Negative); Protein, Urine (Dipstick) 30 mg/dL (Neg-Trace); Specific Gravity, Urine 1.012 (1.002-1.036); Squamous Epithelial None Seen HPF (0-3); Urobilinogen Normal mg/dL (Less than 2)
[2023-03-31 20:24] LABS: Urine Culture Reflex Yes Yes
[2023-04-01 04:34] LABS: #Eosinphils 0.2 thou/uL (0.0-0.7); #Monocytes 0.6 thou/uL (0.11-0.59); %Basophils 0.2 % (0.0-1.0); %Eosinophils 2.6 % (0.0-10.0); %Lymphocytes 12.3 % (21.0-51.0); %Neutrophils 75.4 % (42.0-75.0); Hematocrit 31.7 % (42.0-52.0); Hemoglobin 10.5 g/dL (14.0-18.0); Mean Corpuscular HGB CONC 33.1 g/dL (32.0-36.0); Mean Corpuscular Hemoglobin 31.7 pg (27.0-31.0); Mean Corpuscular Volume 95.8 fl (78.0-98.0); Platelet Count 143 10x3/uL (130-400); RBC Distribution Width 13.6 % (11.5-14.5); Red Blood Cell (RBC) Count 3.31 mill/uL (4.70-6.10); White Blood Cell (WBC) Count 6.6 10x3/uL (4.8-10.8)
[2023-04-01 05:08] LABS: Anion Gap 11 mmol/L (10-20); BUN (Urea Nitrogen) 11 mg/dL (8.4-25.7); Calc. Creatinine Clearance 65 mL/min (70-130); Calcium 9.2 mg/dL (7.8-10.44); Carbon Dioxide 26 mmol/L (23-31); Chloride 106 mmol/L (98-107); Estimated GFR 84; Glucose 114 mg/dL (83-110); Potassium 3.5 mmol/L (3.5-5.1); Sodium 139 mmol/L (136-145)
[2023-04-01] MEDS: Docusate 100 MG CAP PO SCH (09:43)
[2023-04-01] MEDS: Tamsulosin HCl 0.4 MG CAP PO SCH (09:43)
[2023-04-01 12:12] VITALS: BP 144/60; TEMP 98.7
[2023-04-01] MEDS: cefTRIAXone\\ROCEPHIN 2 GM in Sodium Chloride 0.9% 100 ML IVPB SCH (14:08)
== END 2023-04-01 15:12 | DRG 853 ==
LOC: ERS 12:27 → SDC 15:32 → 2SE 18:39 → OBSVTOIN 03-29 08:00
PROVIDERS: ADMIT Family Medicine; ATTEND Hospitalist
PROC: 0T778DZ Dilation of Left Ureter with Intraluminal Device, Via Natural or Artificial Opening Endoscopic (ICD-10-PCS; principal; 2023-03-28)
PROC: 0T9B80Z Drainage of Bladder with Drainage Device, Via Natural or Artificial Opening Endoscopic (ICD-10-PCS; 2023-03-28)
PROC: 0T7D8ZZ Dilation of Urethra, Via Natural or Artificial Opening Endoscopic (ICD-10-PCS; 2023-03-28)
PROC: 3E03329 Introduction of Other Anti-infective into Peripheral Vein, Percutaneous Approach (ICD-10-PCS; 2023-03-28)
PROC: 02HV33Z Insertion of Infusion Device into Superior Vena Cava, Percutaneous Approach (ICD-10-PCS; 2023-03-31)
PROC: B5181ZA Fluoroscopy of Superior Vena Cava using Low Osmolar Contrast, Guidance (ICD-10-PCS; 2023-03-31)
PROC: B548ZZA Ultrasonography of Superior Vena Cava, Guidance (ICD-10-PCS; 2023-03-31)
DX: A41.51 Sepsis due to Escherichia coli [E. coli] (principal); I21.A1 Myocardial infarction type 2; I63.9 Cerebral infarction, unspecified; N13.6 Pyonephrosis; I10 Essential (primary) hypertension; E78.5 Hyperlipidemia, unspecified; R26.81 Unsteadiness on feet; N40.0 Benign prostatic hyperplasia without lower urinary tract symptoms; R91.8 Other nonspecific abnormal finding of lung field; I25.10 Atherosclerotic heart disease of native coronary artery without angina pectoris; Z96.649 Presence of unspecified artificial hip joint; Z98.890 Other specified postprocedural states; Z88.8 Allergy status to other drugs, medicaments and biological substances; Z20.822 Contact with and (suspected) exposure to COVID-19; Z85.46 Personal history of malignant neoplasm of prostate; Z92.3 Personal history of irradiation; Z79.899 Other long term (current) drug therapy; N32.3 Diverticulum of bladder; Z95.5 Presence of coronary angioplasty implant and graft; Z82.49 Family history of ischemic heart disease and other diseases of the circulatory system; Z86.73 Personal history of transient ischemic attack (TIA), and cerebral infarction without residual deficits; Z79.82 Long term (current) use of aspirin; K42.9 Umbilical hernia without obstruction or gangrene
CPT/HCPCS: 36415; 36569; 70450; 71045; 74177; 74420; 80048; 80053; 81001; 83605; 83690; 84484; 85025; 86140; 87040; 87077; 87086; 87149; 87186; 93005; 94640; 96361; 96365; 96375; C1751; C1769; C2617; J0696; J2270; J2405; J2704; J3490; J7050; J7620; Q9967

== ENCOUNTER 2023-04-21 10:13 | Outpatient (CLI) | payer MEDICARE ==
[2023-04-21 12:06] LABS: Hematocrit 39.9 % (38.8-50.0); Hemoglobin 12.8 g/dL (13.5-17.5); Mean Corpuscular HGB CONC 32.1 g/dL (32.0-36.0); Mean Corpuscular Hemoglobin 31.3 pg (27.0-33.0); Mean Corpuscular Volume 97.6 fl (81.2-95.1); Mean Platelet Volume 8.7 fl (7.4-10.4); Platelet Count 208 10x3/uL (150-450); RBC Distribution Width 13.4 % (11.5-14.5); Red Blood Cell (RBC) Count 4.09 10x6/uL (4.32-5.72); White Blood Cell (WBC) Count 5.5 10x3/uL (3.5-10.5)
[2023-04-21 12:19] LABS: Anion Gap 12 mmol/L (10-20); BUN (Urea Nitrogen) 11 mg/dL (8.4-25.7); Calc. Creatinine Clearance 0 mL/min (70-130); Calcium 9.6 mg/dL (7.8-10.44); Carbon Dioxide 29 mmol/L (23-31); Chloride 105 mmol/L (98-107); Estimated GFR 81; Glucose 100 mg/dL (83-110); Sodium 142 mmol/L (136-145)
== END 2023-04-21 10:14 | disposition home or self-care (01) ==
LOC: LABBT 10:13
PROVIDERS: ATTEND Urology
DX: Z01.812 Encounter for preprocedural laboratory examination (principal); N20.1 Calculus of ureter
CPT/HCPCS: 80048; 85027; 87086

== ENCOUNTER 2023-04-27 08:04 | Day surgery (SDC) | payer MEDICARE ==
[2023-04-21 11:11] VITALS: BMI 24.2
[2023-04-27] MEDS ORDERED: fentaNYL PF 100 MCG/2 ML SYRINGE ONE (09:01)
[2023-04-27] MEDS ORDERED: Iopamidol 30 ML ONE (10:07)
[2023-04-27] MEDS ORDERED: cefTRIAXone (ROCEPHIN) 1 GM VIAL ONE (10:15)
[2023-04-27] MEDS ORDERED: Sodium Chloride 0.9% 100 ML ONE (10:15)
[2023-04-27] MEDS ORDERED: PROPOFOL 200 MG/20 ML VIAL ONE (10:36)
[2023-04-27] MEDS ORDERED: Lidocaine 1% PF 5 ML VIAL ONE (10:36)
== END 2023-04-27 16:18 | disposition home or self-care (01) ==
LOC: SDC 08:04
PROVIDERS: ATTEND Urology
PROC: 0TF78ZZ Fragmentation in Left Ureter, Via Natural or Artificial Opening Endoscopic (ICD-10-PCS; principal; 2023-04-27)
DX: N20.1 Calculus of ureter (principal); Z88.8 Allergy status to other drugs, medicaments and biological substances
CPT/HCPCS: 74420; 93005; 93010; J0696; J2704; J3490; Q9967

== ENCOUNTER 2023-05-26 12:58 | Emergency (ER) | payer MEDICARE ==
[2023-05-26 14:11] LABS: #Eosinphils 0.1 thou/uL (0.0-0.7); #Monocytes 0.3 thou/uL (0.11-0.59); #Neutrophils 3.3 thou/uL (1.40-6.50); %Basophils 0.4 % (0.0-1.0); %Eosinophils 1.4 % (0.0-10.0); %Lymphocytes 23.8 % (21.0-51.0); %Monocytes 6.6 % (0.0-10.0); %Neutrophils 67.4 % (42.0-75.0); Hematocrit 36.9 % (42.0-52.0); Hemoglobin 12.2 g/dL (14.0-18.0); Mean Corpuscular HGB CONC 33.1 g/dL (32.0-36.0); Mean Corpuscular Hemoglobin 32.4 pg (27.0-31.0); Mean Corpuscular Volume 98.1 fl (78.0-98.0); Mean Platelet Volume 8.3 fL (7.4-10.4); Platelet Count 152 10x3/uL (130-400); RBC Distribution Width 13.9 % (11.5-14.5); Red Blood Cell (RBC) Count 3.76 mill/uL (4.70-6.10); White Blood Cell (WBC) Count 4.9 10x3/uL (4.8-10.8)
[2023-05-26 14:33] LABS: ALT (SGPT) 21 U/L (8-55); AST (SGOT) 25 U/L (5-34); Albumin 4.2 g/dL (3.4-4.8); Alkaline Phosphatase 59 U/L (40-110); Anion Gap 8 mmol/L (10-20); BUN (Urea Nitrogen) 11 mg/dL (8.4-25.7); Bilirubin, Total 0.7 mg/dL (0.2-1.2); Calc. Creatinine Clearance 0 mL/min (70-130); Calcium 9.8 mg/dL (7.8-10.44); Carbon Dioxide 31 mmol/L (23-31); Chloride 104 mmol/L (98-107); Estimated GFR 84; Globulin 2.3 g/dL (2.4-3.5); Glucose 155 mg/dL (83-110); Potassium 3.5 mmol/L (3.5-5.1); Protein, Total 6.5 g/dL (5.8-8.1); Sodium 139 mmol/L (136-145)
[2023-05-26 14:38] LABS: Troponin I 0.016 ng/mL (< 0.028)
== END 2023-05-26 15:48 | disposition home or self-care (01) ==
LOC: ERS 12:58
DX: I10 Essential (primary) hypertension (principal); E78.5 Hyperlipidemia, unspecified; Z79.899 Other long term (current) drug therapy
CPT/HCPCS: 36415; 80053; 84484; 85025; 93005

== ENCOUNTER 2023-08-20 10:25 | Emergency (ER) | payer MEDICARE ==
[2023-08-20 12:07] LABS: #Eosinphils 0.1 thou/uL (0.0-0.7); #Monocytes 0.4 thou/uL (0.11-0.59); #Neutrophils 4.4 thou/uL (1.40-6.50); %Basophils 0.5 % (0.0-1.0); %Lymphocytes 20.4 % (21.0-51.0); %Monocytes 6.3 % (0.0-10.0); %Neutrophils 71.5 % (42.0-75.0); Hematocrit 40.6 % (42.0-52.0); Hemoglobin 13.4 g/dL (14.0-18.0); Mean Corpuscular Volume 96.9 fl (78.0-98.0); Mean Platelet Volume 8.6 fL (7.4-10.4); Platelet Count 189 10x3/uL (130-400); RBC Distribution Width 13.2 % (11.5-14.5); Red Blood Cell (RBC) Count 4.19 mill/uL (4.70-6.10); White Blood Cell (WBC) Count 6.2 10x3/uL (4.8-10.8)
[2023-08-20 12:24] LABS: PTT 31.2 sec (22.9-36.1); Prothrombin Time 13.5 sec (12.0-14.7)
[2023-08-20 12:33] LABS: ALT (SGPT) 16 U/L (8-55); AST (SGOT) 21 U/L (5-34); Albumin 4.2 g/dL (3.4-4.8); Alkaline Phosphatase 56 U/L (40-110); Anion Gap 10 mmol/L (10-20); BUN (Urea Nitrogen) 16 mg/dL (8.4-25.7); Bilirubin, Total 1.1 mg/dL (0.2-1.2); Calc. Creatinine Clearance 0 mL/min (70-130); Calcium 9.9 mg/dL (7.8-10.44); Carbon Dioxide 27 mmol/L (23-31); Chloride 108 mmol/L (98-107); Estimated GFR 84; Globulin 2.7 g/dL (2.4-3.5); Glucose 99 mg/dL (83-110); Protein, Total 6.9 g/dL (5.8-8.1); Sodium 141 mmol/L (136-145)
[2023-08-20 12:48] LABS: Bilirubin Negative (Negative); Blood, Urine 1+ (Negative); CAUTI Indications for Culture Dysuria,urgency,freq; Clarity Clear (Clear); Glucose, Urine (Dipstick) Normal (Negative); Ketone, Urine Negative (Negative); Leukocyte Negative Leu/uL (Negative); Nitrite Negative (Negative); Protein, Urine (Dipstick) 10 mg/dL (Neg-Trace); Squamous Epithelial None Seen HPF (0-3); Urobilinogen Normal mg/dL (Less than 2); pH, Urine 5.5 (5.0-9.0)
[2023-08-20 13:00] LABS: Bacteria/HPF 1+ HPF (None Seen)
[2023-08-20 13:01] LABS: Urine Culture Reflex Yes Yes
[2023-08-20] MEDS ORDERED: Sodium Bicarbonate 0.5 MEQ/ML SDV 10 ML ONE (13:13)
[2023-08-20] MEDS ORDERED: Lidocaine 1% PF 5 ML VIAL ONE (13:13)
[2023-08-20] MEDS ORDERED: Lidocaine 2% 6 ML (Jelly) SYR ONE (14:30)
[2023-08-20] MEDS ORDERED: LevoFLOXacin 250 MG TAB PO SCH (16:45)
[2023-08-20] MEDS ORDERED: Lidocaine 1% w/Epinephrine 1:100K 20 ML VIAL ONE (16:50)
== END 2023-08-20 13:52 | disposition home or self-care (01) ==
LOC: ERS 10:25
PROC: 0T9B3ZZ Drainage of Bladder, Percutaneous Approach (ICD-10-PCS; principal; 2023-08-20)
DX: R33.9 Retention of urine, unspecified (principal)
CPT/HCPCS: 51102 ×2; 77002; 80053; 81001; 85025; 85610; 85730; 87086; 99284; C2627; 36415

== ENCOUNTER 2023-09-06 18:45 | Emergency (ER) | payer MEDICARE | END 2023-09-06 22:05 | disposition home or self-care (01) | LOC: ERS 18:45 | DX: T83.098A Other mechanical complication of other urinary catheter, initial encounter (principal); R31.9 Hematuria, unspecified; I10 Essential (primary) hypertension | CPT/HCPCS: 99283 ==

== ENCOUNTER 2023-09-09 00:47 | Emergency (ER) | payer MEDICARE, OTHER ==
[2023-09-09 01:20] LABS: Bacteria/HPF 1+ HPF (None Seen); Bilirubin Negative (Negative); Blood, Urine 3+ (Negative); CAUTI Indications for Culture Dysuria,urgency,freq; Clarity Clear (Clear); Glucose, Urine (Dipstick) Normal (Negative); Ketone, Urine Negative (Negative); Leukocyte 75 Leu/uL (Negative); Nitrite Negative (Negative); Protein, Urine (Dipstick) Negative (Neg-Trace); Specific Gravity, Urine 1.002 (1.002-1.036); Squamous Epithelial None Seen HPF (0-3); Urobilinogen Normal mg/dL (Less than 2); WBC/HPF 0-3 HPF (0-3); pH, Urine 7.5 (5.0-9.0)
[2023-09-09 01:22] LABS: Urine Culture Reflex No No
[2023-09-09 01:40] LABS: #Eosinphils 0.1 thou/uL (0.0-0.7); #Monocytes 0.6 thou/uL (0.11-0.59); #Neutrophils 3.7 thou/uL (1.40-6.50); %Basophils 0.5 % (0.0-1.0); %Eosinophils 1.8 % (0.0-10.0); %Lymphocytes 26.3 % (21.0-51.0); %Monocytes 9.7 % (0.0-10.0); %Neutrophils 61.2 % (42.0-75.0); Hematocrit 36.3 % (42.0-52.0); Hemoglobin 12.2 g/dL (14.0-18.0); Mean Corpuscular HGB CONC 33.6 g/dL (32.0-36.0); Mean Corpuscular Hemoglobin 32.3 pg (27.0-31.0); Mean Platelet Volume 8.5 fL (7.4-10.4); Platelet Count 177 10x3/uL (130-400); RBC Distribution Width 12.9 % (11.5-14.5); Red Blood Cell (RBC) Count 3.78 mill/uL (4.70-6.10)
[2023-09-09 02:01] LABS: ALT (SGPT) 15 U/L (8-55); AST (SGOT) 19 U/L (5-34); Albumin 3.9 g/dL (3.4-4.8); Alkaline Phosphatase 62 U/L (40-110); Anion Gap 10 mmol/L (10-20); BUN (Urea Nitrogen) 14 mg/dL (8.4-25.7); Bilirubin, Total 0.8 mg/dL (0.2-1.2); Calc. Creatinine Clearance 0 mL/min (70-130); Calcium 9.6 mg/dL (7.8-10.44); Carbon Dioxide 29 mmol/L (23-31); Chloride 103 mmol/L (98-107); Estimated GFR 84; Globulin 2.6 g/dL (2.4-3.5); Glucose 102 mg/dL (83-110); Potassium 3.3 mmol/L (3.5-5.1); Protein, Total 6.5 g/dL (5.8-8.1); Sodium 139 mmol/L (136-145)
[2023-09-09] MEDS ORDERED: Potassium Chloride 20 MEQ TAB ONE (02:10)
== END 2023-09-09 02:15 | disposition home or self-care (01) ==
LOC: ERS 00:47
DX: R31.9 Hematuria, unspecified (principal); T83.092A Other mechanical complication of nephrostomy catheter, initial encounter; I10 Essential (primary) hypertension; Z79.82 Long term (current) use of aspirin
CPT/HCPCS: 36415; 80053; 81001; 85025; 87086; 99283

== ENCOUNTER 2023-09-20 13:30 | Emergency (ER) | payer MEDICARE ==
[2023-09-20 19:02] LABS: Bacteria/HPF None Seen HPF (None Seen); Bilirubin Negative (Negative); Blood, Urine 3+ (Negative); CAUTI Indications for Culture Acute Hematuria; Clarity Clear (Clear); Glucose, Urine (Dipstick) Normal (Negative); Ketone, Urine Negative (Negative); Leukocyte 75 Leu/uL (Negative); Nitrite Negative (Negative); Protein, Urine (Dipstick) Negative (Neg-Trace); RBC/HPF 0-3 HPF (0-3); Squamous Epithelial 0-3 HPF (0-3); Urobilinogen Normal mg/dL (Less than 2); WBC/HPF 0-3 HPF (0-3)
[2023-09-20 19:04] LABS: Urine Culture Reflex No No
== END 2023-09-20 19:13 | disposition home or self-care (01) ==
LOC: ERS 13:30
DX: T83.091A Other mechanical complication of indwelling urethral catheter, initial encounter (principal); Z53.21 Procedure and treatment not carried out due to patient leaving prior to being seen by health care provider
CPT/HCPCS: 81001; 87077; 87086; 87186

== ENCOUNTER 2023-09-30 09:11 | Day surgery (SDC) | payer MEDICARE ==
[2023-09-30] MEDS ORDERED: Lidocaine 2% 6 ML (Jelly) SYR ONE ×2 (10:00→10:27)
[2023-09-30] MEDS ORDERED: Sterile Water 10 ML ONE (10:43)
[2023-09-30] MEDS ORDERED: Sodium Chloride 0.9% 500 ML ONE (10:47)
[2023-09-30] MEDS ORDERED: Iopamidol 100 ML FS ONE (10:47)
== END 2023-09-30 12:10 | disposition home or self-care (01) ==
LOC: SPEC 09:11
PROVIDERS: ATTEND Urology
PROC: 0T2BX0Z Change Drainage Device in Bladder, External Approach (ICD-10-PCS; principal; 2023-09-30)
DX: R39.14 Feeling of incomplete bladder emptying (principal); Z88.8 Allergy status to other drugs, medicaments and biological substances
CPT/HCPCS: 49423; J7030; Q9967

== ENCOUNTER 2024-08-30 13:17 | Outpatient (CLI) | payer MEDICARE | END 2024-08-30 13:18 | disposition home or self-care (01) | LOC: BICRAD 13:17 | PROVIDERS: ATTEND Nurse Practitioner Family | DX: M79.672 Pain in left foot (principal); M10.9 Gout, unspecified; M19.072 Primary osteoarthritis, left ankle and foot; M25.775 Osteophyte, left foot | CPT/HCPCS: 36415; 80053; 83880; 84550; 85025 ==

== ENCOUNTER 2024-09-29 15:01 | Outpatient (CLI) | payer MEDICARE | END 2024-09-29 15:02 | disposition home or self-care (01) | LOC: BICRAD 15:01 | PROVIDERS: ATTEND Nurse Practitioner Family | DX: M25.551 Pain in right hip (principal) ==

== ENCOUNTER 2025-03-03 00:26 | Emergency (ER) | payer MEDICARE ==
[2025-03-03 01:18] LABS: #Basophils Less than 0.03 10x3/uL (0.0-0.2); #Eosinophils 0.12 10x3/uL (0.0-0.7); #Monocytes 0.49 10x3/uL (0.11-0.59); #Neutrophils 3.08 10x3/uL (1.40-6.50); %Basophils 0.2 % (0.0-1.0); %Eosinophils 2.3 % (0.0-10.0); %Lymphocytes 28.2 % (21.0-51.0); %Monocytes 9.5 % (0.0-10.0); %Neutrophils 59.4 % (42.0-75.0); Hematocrit 35.1 % (42.0-52.0); Hemoglobin 11.7 g/dL (14.0-18.0); Mean Corpuscular Hemoglobin 32.1 pg (27.0-31.0); Mean Corpuscular Volume 96.2 fL (78.0-98.0); Platelet Count 216 10x3/uL (130-400); Red Blood Cell (RBC) Count 3.65 mill/uL (4.70-6.10); White Blood Cell (WBC) Count 5.18 10x3/uL (4.8-10.8)
[2025-03-03 01:27] LABS: INR-International Normal Ratio 1.0; PTT 33.2 sec (22.9-36.1); Prothrombin Time 13.4 sec (12.0-14.7)
[2025-03-03 01:36] LABS: ALT (SGPT) 13 U/L (Less than 45); AST (SGOT) 24 U/L (11-34); Albumin 3.6 g/dL (3.1-4.5); Alkaline Phosphatase 61 U/L (40-110); Anion Gap 10 mmol/L (10-20); BUN (Urea Nitrogen) 16 mg/dL (8.4-25.7); Bilirubin, Total 0.4 mg/dL (0.3-1.2); Calc. Creatinine Clearance 0 mL/min (70-130); Calcium 9.1 mg/dL (7.8-10.44); Carbon Dioxide 27 mmol/L (23-31); Chloride 104 mmol/L (98-107); Globulin 2.6 g/dL (2.4-3.5); Glucose 109 mg/dL (83-110); Potassium 3.9 mmol/L (3.5-5.1); Sodium 137 mmol/L (136-145)
[2025-03-03 01:54] LABS: CAUTI Indications for Culture Dysuria,urgency,freq; Glucose, Urine (Dipstick) Normal (Negative); Leukocyte 75 Leu/uL (Negative); Protein, Urine (Dipstick) 10 mg/dL (Neg-Trace); Specific Gravity, Urine 1.002 (1.002-1.036); WBC/HPF 0-3 HPF (0-3)
[2025-03-03 01:55] LABS: Bacteria/HPF 1+ HPF (None Seen)
[2025-03-03 01:56] LABS: Urine Culture Reflex No No
[2025-03-03] MEDS ORDERED: cefTRIAXone (ROCEPHIN) 1 GM VIAL ONE (03:24)
== END 2025-03-03 06:09 | disposition short-term general hospital (02) ==
LOC: ERS 00:26
DX: R00.1 Bradycardia, unspecified (principal); I10 Essential (primary) hypertension; E78.5 Hyperlipidemia, unspecified; Z86.73 Personal history of transient ischemic attack (TIA), and cerebral infarction without residual deficits; Z95.1 Presence of aortocoronary bypass graft; Z79.82 Long term (current) use of aspirin; Z79.899 Other long term (current) drug therapy
CPT/HCPCS: 80053; 81001; 85025; 85610; 85730; 86850; 86900; 86901; 93005; J0696; 36415; 96365; 96366

== ENCOUNTER 2025-03-10 17:39 | Emergency (ER) | payer MEDICARE ==
[2025-03-10 20:20] LABS: CAUTI Indications for Culture Acute Hematuria; Glucose, Urine (Dipstick) Normal (Negative); Leukocyte Negative Leu/uL (Negative); Protein, Urine (Dipstick) Negative (Neg-Trace); RBC/HPF 0-3 HPF (0-3); Specific Gravity, Urine 1.003 (1.002-1.036); WBC/HPF 0-3 HPF (0-3)
[2025-03-10 20:21] LABS: Bacteria/HPF 1+ HPF (None Seen); Urine Culture Reflex No No
== END 2025-03-10 20:39 | disposition home or self-care (01) ==
LOC: ERS 17:39
DX: T83.098A Other mechanical complication of other urinary catheter, initial encounter (principal); I10 Essential (primary) hypertension; E78.5 Hyperlipidemia, unspecified; Z86.73 Personal history of transient ischemic attack (TIA), and cerebral infarction without residual deficits; Z79.82 Long term (current) use of aspirin; Z79.899 Other long term (current) drug therapy
CPT/HCPCS: 81001; 99283

== ENCOUNTER 2025-05-18 20:37 | Emergency (ER) | payer MEDICARE ==
[2025-05-18 21:14] LABS: #Basophils 0.03 10x3/uL (0.0-0.2); #Eosinophils 0.17 10x3/uL (0.0-0.7); #Monocytes 0.49 10x3/uL (0.11-0.59); #Neutrophils 3.53 10x3/uL (1.40-6.50); %Basophils 0.5 % (0.0-1.0); %Eosinophils 3.0 % (0.0-10.0); %Lymphocytes 26.1 % (21.0-51.0); %Monocytes 8.5 % (0.0-10.0); %Neutrophils 61.6 % (42.0-75.0); Hematocrit 38.7 % (42.0-52.0); Hemoglobin 12.6 g/dL (14.0-18.0); Mean Corpuscular Hemoglobin 31.4 pg (27.0-31.0); Mean Corpuscular Volume 96.5 fL (78.0-98.0); Platelet Count 202 10x3/uL (130-400); Red Blood Cell (RBC) Count 4.01 mill/uL (4.70-6.10); White Blood Cell (WBC) Count 5.74 10x3/uL (4.8-10.8)
[2025-05-18 21:29] LABS: ALT (SGPT) 16 U/L (Less than 45); AST (SGOT) 39 U/L (11-34); Albumin 3.9 g/dL (3.1-4.5); Alkaline Phosphatase 77 U/L (40-110); Anion Gap 13 mmol/L (10-20); BUN (Urea Nitrogen) 16 mg/dL (8.4-25.7); Bilirubin, Total 0.6 mg/dL (0.3-1.2); Calc. Creatinine Clearance 0 mL/min (70-130); Calcium 10.2 mg/dL (7.8-10.44); Carbon Dioxide 28 mmol/L (23-31); Chloride 106 mmol/L (98-107); Globulin 3.1 g/dL (2.4-3.5); Glucose 96 mg/dL (83-110); Potassium 3.8 mmol/L (3.5-5.1); Sodium 143 mmol/L (136-145)
[2025-05-18 21:33] LABS: Bacteria/HPF None Seen HPF (None Seen); CAUTI Indications for Culture Acute Hematuria; Glucose, Urine (Dipstick) Normal (Negative); Leukocyte 25 Leu/uL (Negative); Protein, Urine (Dipstick) 300 mg/dL (Neg-Trace); Specific Gravity, Urine 1.016 (1.002-1.036)
[2025-05-18 21:42] LABS: RBC/HPF Greater than 50 HPF (0-3); WBC/HPF 0-3 HPF (0-3)
[2025-05-18 21:43] LABS: Urine Culture Reflex No No
== END 2025-05-18 22:30 | disposition home or self-care (01) ==
LOC: ERS 20:37
DX: R31.0 Gross hematuria (principal); I10 Essential (primary) hypertension; Z86.73 Personal history of transient ischemic attack (TIA), and cerebral infarction without residual deficits
CPT/HCPCS: 51700; 74176; 80053; 81001; 85025; 86850; 86900; 86901; 87077; 87086